=== PATIENT | female | born 1950 | race Caucasian/White ===

== ENCOUNTER → 2016-04-05 | Outpatient (CLI) | payer OTHER ==
[~2016-04-05] MED LIST: CLX20; ESTR1.252; ZMG5
[2016-04-05 17:32] LABS: URINE APPEARANCE CLOUDY (CLEAR); URINE BILIRUBIN NEG (NEG); URINE COLOR YELLOW; URINE EPITHELIAL CELL AUTO >30 /lpf (0-5); URINE NITRITE NEG (NEG); URINE SPECIFIC GRAVITY 1.009 (1.000-1.030); UROBILINOGEN NEG (NEG)
[2016-04-05 17:56] LABS: MANUAL MICROSCOPIC REQUIRED? NO; REVIEW REQ? YES
== END | disposition home or self-care (01) ==
LOC: C.LABPBG 14:54
PROVIDERS: ATTEND Family Medicine
DX: Z11.59 Encounter for screening for other viral diseases (principal); N30.90 Cystitis, unspecified without hematuria

== ENCOUNTER → 2016-07-19 | Outpatient (CLI) | payer OTHER ==
--- NOTE | 2016-07-19 16:32 | DIAGNOSTIC IMAGING REPORT ---
CHEST 2 VIEWS ROUTINE CLINICAL HISTORY: ACUTE BRONCHITIS W/BRONCHOSPASM dyspnea COMPARISON STUDY: No previous studies for comparison. FINDINGS: The bones soft tissues and hemidiaphragms are normal. The cardiomediastinal silhouette is normal. The lungs are clear. The pulmonary vasculature is normal. IMPRESSION: Negative chest. Electronically signed by: Kevin Guadalupe M.D. 07/19/2016 4:30 PM Dictated Date/Time: 07/19/2016 4:02 PM
== END | disposition home or self-care (01) ==
LOC: C.RAD1850 15:31
PROVIDERS: ATTEND Nurse Practitioner Family
DX: J20.9 Acute bronchitis, unspecified (principal)

== ENCOUNTER → 2016-09-27 | Outpatient (CLI) | payer OTHER ==
[2016-09-28 11:24] LABS: URINE APPEARANCE CLEAR (CLEAR); URINE BILIRUBIN NEG (NEG); URINE COLOR YELLOW; URINE NITRITE NEG (NEG); URINE PH 6.5 (4.5-7.5); URINE SPECIFIC GRAVITY 1.008 (1.000-1.030); UROBILINOGEN NEG (NEG)
[2016-09-28 11:37] LABS: MANUAL MICROSCOPIC REQUIRED? NO; REVIEW REQ? NO
== END | disposition home or self-care (01) ==
LOC: C.LABSPEC 11:07
PROVIDERS: ATTEND Family Medicine
DX: Z00.00 Encounter for general adult medical examination without abnormal findings (principal); N30.90 Cystitis, unspecified without hematuria; R30.0 Dysuria

== ENCOUNTER → 2016-10-03 | Outpatient (CLI) | payer OTHER | END | disposition home or self-care (01) | LOC: C.LABSPEC 17:27 | PROVIDERS: ATTEND Family Medicine | DX: R05 Cough (principal) ==

== ENCOUNTER 2021-07-22 05:16 | Observation (INO) ==
--- NOTE | 2021-06-18 11:00 | PAT Medication Instructions ---
Medication Instructions Date of Service June 18, 2021 Home Medications Medication Instructions Recorded 3-in-1 Commode #1 ea 03/04/21 Wheeled Walker #1 ea 03/04/21 medroxyprogesterone 5 mg tablet 5 mg PO DAILY #30 tab 06/07/21 acetaminophen 325 mg capsule 325 - 650 mg PO Q6H PRN conjugated estrogens 0.625 mg/gram vaginal cream (Premarin) 0.3125 mg PV 2XWK multivitamin with minerals 1 tab PO UD cholecalciferol (vitamin D3) 25 mcg (1,000 unit) capsule 25 mcg PO DAILY zinc 50 mg tablet 25 mg PO DAILY 3-in-1 Commode #1 ea Wheeled Walker #1 ea medroxyprogesterone 5 mg tablet 5 mg PO DAILY ASK your prescriber and surgeon medroxyprogesterone 5 mg tablet 5 mg PO DAILY STOP taking 24 hours before surgery conjugated estrogens 0.625 mg/gram vaginal cream (Premarin) 0.3125 mg PV 2XWK DO NOT take the morning of surgery multivitamin with minerals 1 tab PO UD cholecalciferol (vitamin D3) 25 mcg (1,000 unit) capsule 25 mcg PO DAILY zinc 50 mg tablet 25 mg PO DAILY Take morning of surgery With a small sip of water, OTHERWISE NOTHING TO EAT OR DRINK AFTER MIDNIGHT: acetaminophen 325 mg capsule 325 - 650 mg PO Q6H PRN(okay to take up to 4 hours prior to surgery if needed) Take evening before surgery acetaminophen 325 mg capsule 325 - 650 mg PO Q6H PRN(if needed) Other Notes If you have any questions please call us at [phone] or [phone] or [phone] or [phone]
--- NOTE | 2021-06-22 11:16 | Anesthesiology Consultation ---
Date of Service June 22, 2021 Assessment & Plan (1) Encounter for pre-operative examination: - intermittent chest discomfort/abnormal EKG: Patient denies symptoms today in clinic. Case discussed in detail with Dr. Schaefer while patient was in clinic and he advised patient is acceptable for outpatient work-up, will need cardiology pre-op evaluation prior to surgery. Patient made aware, prefers afternoon appointment with [facility]. She verbalized understanding to call 911 if any recurrence of symptoms or new symptoms and to contact her PCP in interim after this appointment today. Workload note also sent to PCP. Awaiting cardiology pre- op evaluation. - COVID screening: Per assessment on 06/22/2021: Travel screen negative, no known COVID-19 positive contacts or current COVID-19 related symptoms in past 2 weeks. Surgeon arranging preop COVID testing, scheduled 07/20/2021. Awaiting results. Chart Review Chart Review: Pending: Refer to Additional Notes / Consult section and Patient seen in Pre Admission Testing Teaching & Discussion Pre-Anesthesia Teaching/Discussion Notes: Instructed NPO after midnight before surgery, except medications with 15 cc of water. Medication instructions provided according to the PAT guidelines. History Surgery Operation Date: 07/22/21 07:00 Proposed Procedures p Left Total Hip Arthroplasty - Geovanny Ryan MD Height/Weight Height: 5 ft 2 in Weight: 70.5 kg Allergies Allergy/AdvReac Type Severity Reaction Status Date / Time No Known Drug Allergies Allergy Verified 06/17/21 11:06 Medications Home Medications Medication Instructions Recorded Confirmed Last Taken acetaminophen 325 mg capsule 325 - 650 mg PO Q6H PRN cap 11/19/18 06/17/21 12/02/18 conjugated estrogens 0.625 mg/gram 0.3125 mg PV 2XWK gm 11/19/18 06/17/21 11/30/18 vaginal cream (Premarin) multivitamin with minerals 1 tab PO UD 11/29/18 06/17/21 12/02/18 cholecalciferol (vitamin D3) 25 25 mcg PO DAILY 01/05/21 06/17/21 Unknown mcg (1,000 unit) capsule zinc 50 mg tablet 25 mg PO DAILY 01/05/21 06/17/21 Unknown 3-in-1 Commode #1 ea 03/04/21 03/04/21 Unknown Wheeled Walker #1 ea 03/04/21 03/04/21 Unknown medroxyprogesterone 5 mg tablet 5 mg PO DAILY #30 tab 06/07/21 06/17/21 Unknown Past Medical History Medical History (Updated 06/22/21 @ 16:30 by Unique Lopez PA-C) Acid reflux pt denies Anemia Anxiety Arthritis Chronic cystitis Constipation states with daily Metamucil and fibrous foods is managed History of depression History of diverticulitis History of recurrent ear infection Hyperlipidemia no meds, d/t concerns for liver impact/side effects per pt LBBB (left bundle branch block) ongoing since 2006 per EKG report Mixed stress and urge urinary incontinence Stroke "MINI STROKE"1992--had memory loss, difficulty talking--still has trouble remembering things, followed with Dr. Guillory--unknown cause--pt deferring statin therapy per PCP note Syncopal episodes chronic hx per pt, at times associated with hypotension, states work-up was negative, last episode of altered consciousness > 20 yrs ago She reports onset of intermittent chest discomfort described as tenderness/pres sure at times waking her from sleep, ongoing x several months increasing in frequency. Denies evaluation or contacting PCP expressing anxiety/stress at clinic visits in general. Notes extensive family cardiac history. Denies chest discomfort or other new symptoms today. Patient denies h/o seizures, heart attack, heart failure, DM, HTN, blood clots or blood transfusions. Exercise / Class Metabolic Activity III < 4 Walking/Shop/Light housework (ambulates with rolling walker, SOB with 1 FOS ongoing x months per pt; chest discomfort as above) Past Family History Family History Mother Hearing loss Myocardial infarction Hypertension Colon cancer Coronary heart disease S/P CABG (coronary artery bypass graft) Heart disease Brother Myocardial infarction Asthma Family history of diabetes mellitus Nephrolithiasis Uncle Myocardial infarction Grandfather (Maternal) Colon cancer Father Melanoma Alzheimer disease Other No family history of adverse response to anesthesia Denies family history of Ovarian cancer Prostate cancer Breast cancer Colorectal cancer Uterine cancer Past Surgical History Surgical History H/O colonoscopy with polypectomy History of bilateral tubal ligation History of dilatation and curettage x2 History of laparoscopy History of left breast biopsy benign History of tooth extraction partial upper and lower History of wisdom tooth extraction Hx of tonsillectomy Nausea and vomiting after administration of anesthetic agent Status post left foot surgery BENIGN tumor removal Past Anesthesia History No Family Hx of Anesthesia Complications and Other (confusion post-op with colonoscopy per pt) History of PONV No Hx of Motion Sickness and History of PONV (with ether, denies with recent procedures) Social History Smoking Status: Never smoker Do You Dip or Chew Tobacco: No Hx Alcohol Use: Yes Alcohol type: wine alcohol intake frequency: holidays/special occasions only Hx Substance Use: No substance use type: does not use Review of Systems Snoring, denies witnessed apneas or sleep studies. Patient denies shortness of breath, dyspnea on exertion, fever, chills, cough, wheezing, or palpitations. Physical Exam Vital Signs Vitals BP 132/80 P 68 TEMP 98.1 SP02 99% on RA RESP 17 Physical Mild limitation cervical extension range of motion without pain TMD 3.5 finger breaths Mallampati Score 2 Lungs: normal respiratory effort. Clear throughout to auscultation, no adventitious breath sounds Cardiac: regular rate and rhythm, no murmurs noted Carotid arteries: negative bruit bilat Lab Results Anesthesia Preop Results Results Anesthesia Widget: WBC 5.72 K/uL (4.8-10.8) 06/22/21 Hgb 12.7 g/dL (12.0-16.0) 06/22/21 Hct 37.1 % (37-47) 06/22/21 Plt 274 K/uL (130-400) 06/22/21 Na 139 mmol/L (136-145) 06/22/21 K 3.8 mmol/L (3.5-5.1) 06/22/21 Cl 107 mmol/L (98-107) 06/22/21 CO2 25 mmol/L (21-32) 06/22/21 BUN 13 mg/dl (6-23) 06/22/21 Creat 0.86 mg/dl (0.6-1.2) 06/22/21 Glucose Level 85 mg/dl (70-99(Fasting)) 06/22/21 PT 10.7 Seconds (9.0-12.0) 06/22/21 PTT 24.7 Seconds (21.0-31.0) 06/22/21 INR 1.0 (0.9-1.1) 06/22/21 Blood Type B Positive 06/22/21 Antibody Screen NEGATIVE 06/22/21 Testing Electrocardiogram Date: 06/22/21 Sinus bradycardia, rate 59 bpm LBBB with repolarization abnormality No significant change since 04/27/2006 ECG Chest X-Ray Date: 06/22/21 The lungs are clear of alveolar opacities. There is no evidence for effusion bilaterally. There is no evidence for vascular congestion. There is no acute osseous pathology. IMPRESSION: 1. No acute cardiopulmonary disease. Other Testing Abdomen/pelvis CT 01/14/2021 Pancreas: A 12 mm lipoma is incidentally noted in the pancreatic head. The unenhanced pancreas is otherwise grossly unremarkable. Kidneys: The unenhanced kidneys demonstrate mild cortical atrophy and are without hydronephrosis. There is a punctate nonobstructing right renal calculus. No left renal calculi are identified and no ureteral stone is seen. There is no evidence of contour deforming renal mass lesion. Abdominal vasculature: There is moderate to advanced atherosclerotic calcification and mild ectasia of the abdominal aorta. Bowel: There is mild colonic diverticulosis without CT evidence of acute diverticulitis. No bowel obstruction is seen. The cecum is located in the left lower quadrant. The appendix is well-visualized and normal. Skeletal structures: The skeletal structures are osteopenic. No lytic or blastic lesions are seen. There is mild lumbosacral spondylosis. Arthritic change is noted in the left hip. IMPRESSION: 1. There are no acute infectious or inflammatory findings in the abdomen or pelvis. 2. Punctate nonobstructing right renal calculus. 3. Additional findings as above.
--- NOTE | 2021-07-18 13:01 | History and Physical Report ---
DATE OF ADMISSION: 07/22/2021. CHIEF COMPLAINT: Left hip pain. HISTORY OF PRESENT ILLNESS: The patient is a 71-year-old female who presents for surgical treatment of her left hip. She has a several-year history of increasing left hip pain and discomfort that has gotten significantly worse over the past year or two. She describes buttock pain, groin pain, thigh pain. She has difficulty walking any distance. She went through therapy, which did not help at all. She had an injection into the bursa, which did not help. She takes Tylenol in the morning. She ca n take Aleve due to GI irritation. She uses a cane and has had to use this more and more as time is going on due to her pain. She would like to have her hip fixed. PAST MEDICAL HISTORY: Significant for: 1. Elevated cholesterol. 2. History of stroke in 1992. 3. Gastroesophageal reflux disease. 4. History of recurrent cystitis. 5. Tubular adenoma. 6. Diverticulosis. 7. Urinary incontinence. PAST SURGICAL HISTORY: None recorded. ALLERGIES: None. CURRENT MEDICATIONS: Include. 1. Medroxyprogesterone. 2. Multivitamin. 3. Tylenol. SOCIAL HISTORY: Significant for a female. She is from ____[place], [place]. Does not smoke. FAMILY HISTORY: No heart disease and colon cancer. REVIEW OF SYSTEMS: Significant for multiple musculoskeletal aches and pains. She was told that she had some type of mini stroke, but no gross sequelae. No history of DVT or PE. No known bleeding pro blems. Does not take any blood thinners. PHYSICAL EXAMINATION: GENERAL: Shows a middle-aged female. Looks younger than her stated age. HEENT: Benign. NECK: Supple. No lymphadenopathy. LUNGS: Clear to auscultation. HEART: Regular rate and rhythm. ABDOMEN: Soft, nontender, nondistended. EXTREMITIES: Grossly neurovascularly intact except as follows. Examination of the left hip and leg reveals the patient walks with a markedly antalgic gait. She nava ps quite a bit on the left side. Leg lengths appear pretty equal. She does have pain with any type of hip motion. She also is very tender to palpation. Negative straight leg raise. She is neurologi jeaneth intact. X-RAYS: X-rays of the left hip were reviewed. It shows advanced left hip arthritis. She has comple te loss of joint space. She has cystic changes in the acetabulum. Right hip looks pretty normal. ASSESSMENT: A 71-year-old female with a history of multiple musculoskeletal aches and pains with adv anced left hip arthritis. It has become more debilitating over time. She has failed conservative me asures and would like to have her left hip replaced. She did undergo cardiac evaluation with a stress echo which was negative and cleared by Dr. Negron. S he does have a history of mini strokes, but no sequelae. PLAN: We will proceed with a left hip replacement. She is planning to be [facility] Her son is going to come and stay with her for 2 weeks. Job ID: [id number]
[2021-07-22] MEDS ORDERED: Scopolamine 1 MG TDSY TD SCH (06:00)
[2021-07-22] MEDS ORDERED: ACETAMINOPHEN 500 MG TAB PO SCH (06:00)
[2021-07-22] MEDS ORDERED: GABAPENTIN 300 MG CAP PO SCH (06:00)
[2021-07-22] MEDS ORDERED: TRANEXAMIC ACID 1,000 MG **IV Pre-op IV SCH (06:00)
[2021-07-22] MEDS ORDERED: FAMOTIDINE 20 MG TAB PO SCH (06:00)
[2021-07-22] MEDS ORDERED: LR 500ML BOLUS, THEN 15ML/HR IV SCH (06:00)
[2021-07-22] MEDS ORDERED: ceFAZolin 2000MG 2,000 MG/15 ML SYR IV SCH (06:00)
[2021-07-22] MEDS ORDERED: LR 60ML/HR IV SCH (06:00)
[2021-07-22] MEDS ORDERED: BUPIVACAINE 0.5 % 5 MG/1 ML PF 10ML VIAL ONE (06:16)
[2021-07-22] MEDS ORDERED: fentaNYL citrate 100 MCG/2 ML VIAL ONE (06:38)
[2021-07-22] MEDS ORDERED: MIDAZOLAM HCL 1 MG/ML 2ML VIAL ONE (06:38)
[2021-07-22] MEDS ORDERED: EPINEPHrine INJ 1 MG/ML AMP ONE (06:43)
[2021-07-22] MEDS ORDERED: BUPIVACAINE 0.5 % 5 MG/1 ML MPF 30ML VIAL ONE ×2 (06:43→06:53)
--- NOTE | 2021-07-22 06:55 | History & Physical Bridge Note ---
Date of Service July 22, 2021 History & Physical Bridge Note I have examined the patient, reviewed the History & Physical and in the interval since the performance of the History & Physical I have noted the following changes of clinical significance: no changes noted
[2021-07-22] MEDS ORDERED: PHENYLEPHRINE 100MCG/ML 5ML SYR ONE (07:43)
[2021-07-22] MEDS ORDERED: LIDOCAINE 2% 2 ML VIAL/AMP(20MG/ML) INFIL ONE (07:43)
[2021-07-22] MEDS ORDERED: PROPOFOL IV EMULSION 10 MG/ML 20 ML VIAL IV ONE (07:43)
[2021-07-22] MEDS ORDERED: ONDANSETRON INJ 2 MG/ML 2 ML VIAL ONE (07:43)
[2021-07-22] MEDS ORDERED: ePHEDrine sulfate 50 MG/ML SYR ONE (07:43)
[2021-07-22] MEDS ORDERED: HYDROmorphone INJ 1 MG/ML SYRINGE IV PRN (08:33)
[2021-07-22] MEDS ORDERED: ePHEDrine sulfate 50 MG/ML AMP IV PRN ×2 (08:33→10:09)
[2021-07-22] MEDS ORDERED: ATROPINE SULFATE 0.1 MG/ML 10ML SYR IV PRN ×2 (08:33→10:09)
--- NOTE | 2021-07-22 08:45 | Operative Report ---
PG Post Operative Report Pre & Post Diagnosis Operation Date: 07/22/21 07:00 Pre-Op Diagnosis: Left Hip Osteoarthritis Post-Op Diagnosis: Left Hip Osteoarthritis I identified the patient and participated in the time-out.: Yes Procedure Operation Date: 07/22/21 07:00 Actual Procedures p Left Total Hip Arthroplasty(Left) - Geovanny Ryan MD Surgeon Geovanny Ryan MD Business And Marketing Teacher Amrit Mullins PA-C Estimated Blood Loss 200 Findings Consistent with Post-Op Diagnosis Operative findings were advanced left hip DJD. She had a full-thickness cartilage loss of the superior aspect of the femoral head as well as the acetabulum. Moderate-sized joint effusion. Fluids 1100 cc Specimens Left femoral head sent for pathology Anesthesia Type Spinal MAC Complications none Disposition Accompanied Patient To Recovery: Yes Indications Patient is a 71-year-old female has had a several year history of increasing left hip pain discomfort is gotten secondarily worse over the past year. She failed conservative measures. X-ray showed advanced left hip arthritis which has progressed. That she elected proceed with surgical treatment. Description of Procedure Operative implants consist of: 1. Biomet G7 size 50 mm acetabular shell. 2. 6.5 cancellous acetabular screws 135 mm length 120 mm length. 3. [place] hole logistics planner. 4. Highly cross-linked polyethylene liner with a 50 mm outer diameter, 36 mm inner diameter with a chua placed inferior and posterior. 5. DePuy Corail size 9 KLA femoral stem. 6. +1.5/36 mm ceramic articular ball. The patient was taken to the operating, identified, placed on the operating table supine position but all contact areas were properly padded. IV antibiotics tried by anesthesia team. A spinal anesthetic had been implemented holding area. Miramontes catheter was placed in sterile fashion. The patient was then placed in the right lateral decubitus position. Axillary roll was placed. Stulberg hip positioner was used for positioning. Left hip and leg were then prepped and draped in usual sterile fashion. A posterior lateral approach to the left hip was then performed to a curvilinear incision centered over the greater trochanter. Sharp dissection Through subcutaneous this down to the IT band gluteal fascia the IT band gluteal fascia incised longitudinally in line with skin incision. The underlying greater bursa was excised. The piriformis and external rotators were released from the posterior aspect hip joint along with the posterior capsule was a single layer. Great care was taken throughout the procedure Peca sciatic nerve at all times. Hip was internally rotated and dislocated. Femoral neck osteotomy cut was made with Final Cut about 10 mm above the lesser trochanter. Femoral head was removed and sent for pathology. The femur was retracted anteriorly. Attention drawn the acetabulum. The acetabular labrum was excised. The pulvinar fat was excised. Sequential reaming the acetabular was then performed begin with size 43 and progressing up to a 49. I reamed a bit with a 50 reamer and then placed a 50 mm acetabular shell in about 40 degrees lateral opening and 20 degrees of anteversion. It was fixed with two 6.5 cancellous acetabular screws. A small anterior osteophyte was removed. Trial liner was placed. Attention drawn the femur. The proximal femur was entered with a Brightkite cutter followed by canal finder. I then broached beginning with a size 8 and progressed to a 9. The proximal dimensions could not take any bigger implant so we stopped here. We had good rotational control. I trialed the hip and the hip was stable in full extension and external rotation and flexion to 9 degrees internal rotation about 50 degrees. I was concerned that I lengthened her and may be increased or offset slightly so we elected to use a +1.[address] a chua on the acetabulum. All trial implants were removed. The apex hole logistics planner was placed. A highly cross-linked polyethylene liner with a chua placed inferior and posterior was placed. A DePuy size 9 KLA femoral stem was impacted in position. A +1.5/36 mm ceramic articular ball was placed. Hip was located once again found to be stable. The wound was irrigated with copious also pulsatile lavage solution. I did inject locally with 60 cc of half percent Marcaine with epinephrine. The posterior capsule and external rotators were then repaired through drill holes in the posterior trochanter as a single layer with #2 Tycron suture. The IT band gluteal fascia then closed in 1 PDS suture running fashion for subcutaneous tissues then closed in 2 layers with a deep layer #2 Vicryl suture in the subcutaneous tissues with 2-0 Dexon suture in a buried interrupted fashion the skin was closed skin maryam. Leg was then cleaned and dried a sterile dressing was Xeroform, 4 x 4's, ABD pad, foam tape was applied. The patient then transferred to the recovery room in stable condition. Patient tolerated procedure well and there were no complications. Amrit Mullins, my physician surgeon assistant, was present for the entire procedure. His assistance was essential and required for appropriate patient positioning, prepping and draping, surgical exposure, performing the technical details of the operation, placement the implants, closure of the wound, and placement of the sterile bandage. I attest to the content of the Intraoperative Record and any orders documented therein. Any exceptions are noted below.
--- NOTE | 2021-07-22 09:23 | XRay Report ---
XR hip 1V LT w pelvis CLINICAL HISTORY: IN PACU - A/P PELVIS and LATERAL HIP TECHNIQUE: 2 views of the left hip and single frontal view of the pelvis were obtained. Comparison: Comparison is made to left hip radiograph 08/23/2019 FINDINGS: Patient is status post total hip arthroplasty with expected postsurgical changes including soft tissu e swelling, subcutaneous emphysema, and surgical staple placement. No periarticular lucency or hardwa re fracture is seen. IMPRESSION: Expected postoperative appearance status post placement of total hip arthroplasty. ACT 112: Negative or not required by law. Electronically signed by: Alfonzo Baker M.D. 07/22/2021 9:21 AM
--- NOTE | 2021-07-22 10:10 | Anesthesiology Progress Note ---
Date of Service July 22, 2021 Anesthesia Post Procedure Vital Signs Vital Signs: Temp Pulse Resp BP Pulse Ox 07/22/21 09:50 75 16 132/72 98 07/22/21 09:40 73 16 131/72 96 07/22/21 09:30 81 16 132/70 96 07/22/21 09:20 36.5 C 84 18 131/68 97 07/22/21 09:10 36.5 C 84 18 126/65 98 07/22/21 09:00 89 18 128/52 L 100 07/22/21 08:50 82 16 122/52 L 99 07/22/21 08:40 92 H 18 104/74 99 07/22/21 08:34 36.4 C L 90 18 129/61 97 07/22/21 05:30 36.6 C 67 18 146/82 H 98 Pain Intensity Left Hip: Pain Intensity: 2 Transfer of Care Handoff Completed per policy Notes Mental Status: alert / awake / arousable and participated in evaluation Nausea / Vomiting: adequately controlled Pain: adequately controlled Airway Patency, RR, SpO2: stable & adequate BP & HR: stable & adequate Hydration State: stable & adequate Neuraxial Anesthesia: was administered and sensory block is resolving Anesthetic Complications: no major complications apparent and Pt Satisfied with anesthetic care
[2021-07-22] MEDS ORDERED: HYDROmorphone INJ 0.5 MG/0.5 ML SYR IV PRN (10:49)
[2021-07-22] MEDS ORDERED: bisacodyL 10 MG SUPP PR PRN (10:49)
[2021-07-22] MEDS ORDERED: ALUMINUM/MAGNESIUM SUSP 30 ML UDC PO PRN (10:49)
[2021-07-22] MEDS ORDERED: METOCLOPRAMIDE HCL INJ 5 MG/ML 2 ML VIAL IV PRN (10:49)
[2021-07-22] MEDS ORDERED: ONDANSETRON INJ 2 MG/ML 2 ML VIAL IV PRN (10:49)
[2021-07-22] MEDS ORDERED: PREMARIN VAG CRM 14 APPLN/30 GM TUBE PV SCH (10:49)
[2021-07-22] MEDS ORDERED: MAGNESIUM HYDROXIDE SUSP 30 ML UDC PO PRN (10:49)
[2021-07-22] MEDS ORDERED: DOCUSATE SODIUM/SENNA 50/8.6MG TAB PO SCH (10:49)
[2021-07-22] MEDS ORDERED: NALOXONE HCL 0.4 MG/1 ML VIAL/CARP IV PRN (10:49)
[2021-07-22] MEDS ORDERED: HYDROmorphone INJ 0.5 MG/0.5 ML SYR ONE (10:58)
[2021-07-22] MEDS: SODIUM CHLORIDE 0.9% 1000ML 1,000 ML IV SCH ×2 (11:48→22:03)
[2021-07-22] MEDS: ASPIRIN 81 MG ECTAB PO SCH ×2 (11:54→20:02)
[2021-07-22] MEDS: CHOLECALCIFEROL 1,000 UNITS 25 MCG TAB PO SCH (11:54)
[2021-07-22] MEDS: KETOROLAC TROMETHAMINE 15 MG/ML VIAL IV SCH ×3 (11:55→23:28)
[2021-07-22] MEDS: DOCUSATE SODIUM 100 MG CAP PO SCH ×2 (11:55→20:01)
[2021-07-22] MEDS: ACETAMINOPHEN 500 MG TAB PO SCH ×2 (13:01→22:03)
[2021-07-22] MEDS: PSYLLIUM or GUAR GUM FIBER POWDER PACKET PO SCH (13:03)
[2021-07-22] MEDS ORDERED: TRANEXAMIC ACID / 0.7% NACL 1,000 MG/100 ML BAG IV SCH (14:45)
[2021-07-22] MEDS: ASCORBIC ACID 500 MG TAB PO SCH (15:50)
[2021-07-22] MEDS: Scopolamine CHECK PATCH PLACEMENT SCH ×2 (15:50→23:28)
[2021-07-22] MEDS: ceFAZolin 1000MG 1,000 MG/7.5 ML SYR IV SCH ×2 (16:20→22:03)
[2021-07-22] MEDS: traMADol HCL 50 MG TABLET PO PRN (20:01)
[2021-07-22] MEDS: SENNA 8.6 MG TAB PO SCH (20:02)
[2021-07-23] MEDS: KETOROLAC TROMETHAMINE 15 MG/ML VIAL IV SCH ×4 (05:30→22:40)
[2021-07-23] MEDS: ACETAMINOPHEN 500 MG TAB PO SCH ×3 (05:30→22:40)
[2021-07-23 06:19] LABS: Basophils # (auto) 0.01 K/uL (0-0.2); Basophils % (auto) 0.1 %; Eosinophils # (auto) 0.05 K/uL (0-0.5); Eosinophils % (auto) 0.6 %; Hematocrit (blood only) 31.1 % (37-47); Hemoglobin 10.7 g/dL (12.0-16.0); Immature Granulocytes # (auto) 0.03 K/uL (0.00-0.02); Immature Granulocytes % (auto) 0.3 %; Lymphocytes # (auto) 1.81 K/uL (1.2-3.4); Lymphocytes % (auto) 20.9 %; Mean Corpuscular Hemoglobin 32.2 pg (25-34); Mean Corpuscular Hgb Conc 34.4 g/dL (32-36); Mean Corpuscular Volume 93.7 fL (80-100); Mean Platelet Volume 8.8 fL (7.4-10.4); Monocytes # (auto) 0.83 K/uL (0.11-0.59); Monocytes % (auto) 9.6 %; Neutrophils # (auto) 5.91 K/uL (1.4-6.5); Neutrophils % (auto) 68.5 %; Platelet Count 212 K/uL (130-400); RDW Coefficient of Variation 13.5 % (11.5-14.5); RDW Standard Deviation 46.7 fL (36.4-46.3); Red Blood Count 3.32 M/uL (4.2-5.4); White Blood Count 8.64 K/uL (4.8-10.8)
[2021-07-23 06:53] LABS: BUN Creatinine Ratio 13.2 (10-20); Calcium 8.5 mg/dl (8.5-10.1); Creatinine Clr Calc Pharmacy 51.9 ml/min; Est GFR (African American) 73.6 ml/min; Est GFR (Non-African American) 63.5 ml/min; Potassium 3.6 mmol/L (3.5-5.1)
[2021-07-23] MEDS ORDERED: dexAMETHasone 10 MG in SYRINGE 0 ML IV SCH (08:00)
--- NOTE | 2021-07-23 08:24 | Progress Notes ---
DATE OF NOTE: 07/23/2021. SUBJECTIVE: A 71-year-old white female postoperative day 1 from left hip replacement. She is doing okay this morning. Had a decent amount of pain last night. Had a little trouble getting up last nig ht, got a little dizzy and lightheaded. She is a bit concerned about this. No chest pain or shortne ss of breath. OBJECTIVE: VITAL SIGNS: Temperature 36.8. Vital signs are stable. GENERAL: Shows a pleasant, elderly female. She is lying in bed, looks pretty comfortable this morni ng. LUNGS: Clear to auscultation. HEART: Regular rate and rhythm. ABDOMEN: Soft, nontender, nondistended. EXTREMITIES: Grossly neurovascularly intact except as follows. Examination of the left hip reveals the dressing to be clean, dry and intact. Leg lengths were equal . She can dorsiflex and plantarflex her foot appropriately. She is neurologically intact. LABORATORY: Hemoglobin 10.7, hematocrit 31.1. Electrolytes are stable. ASSESSMENT: A 71-year-old white female postop day 1 from a left hip replacement, doing okay. Had a little trouble getting up and around yesterday. Moderate amount of pain, but doing okay with pain me dicines. We will see how she mobilizes today. PLAN: 1. DVT prophylaxis include thigh-high TEDs, SCDs, and aspirin twice a day. 2. PT/OT. She can weight bear as tolerated. Left total hip protocol. 3. Pain control, doing okay with current pain regimen. 4. Disposition: She is planning to be discharged to home with some home health. We will see how omari ferreira goes today. Job ID: [id number]
[2021-07-23] MEDS: traMADol HCL 50 MG TABLET PO PRN ×2 (09:04→13:23)
[2021-07-23] MEDS: ASPIRIN 81 MG ECTAB PO SCH ×2 (09:05→20:59)
[2021-07-23] MEDS: CEROVITE ADV FORMULA TAB PO SCH (09:05)
[2021-07-23] MEDS: Scopolamine CHECK PATCH PLACEMENT SCH ×3 (09:05→23:05)
[2021-07-23] MEDS: ASCORBIC ACID 500 MG TAB PO SCH ×2 (09:06→17:48)
[2021-07-23] MEDS: ZINC SULFATE 220 MG CAPSULE PO SCH (09:06)
[2021-07-23] MEDS: CHOLECALCIFEROL 1,000 UNITS 25 MCG TAB PO SCH (09:06)
[2021-07-23] MEDS: MULTIVITAMIN TAB PO SCH (09:06)
[2021-07-23] MEDS: DOCUSATE SODIUM 100 MG CAP PO SCH ×2 (09:08→21:01)
[2021-07-23] MEDS: PSYLLIUM or GUAR GUM FIBER POWDER PACKET PO SCH (09:08)
[2021-07-23] MEDS: SENNA 8.6 MG TAB PO SCH (20:59)
[2021-07-24] MEDS: traMADol HCL 50 MG TABLET PO PRN ×3 (04:24→14:24)
[2021-07-24] MEDS: KETOROLAC TROMETHAMINE 15 MG/ML VIAL IV SCH (05:45)
[2021-07-24] MEDS: ACETAMINOPHEN 500 MG TAB PO SCH ×2 (05:46→14:25)
[2021-07-24] MEDS: CHOLECALCIFEROL 1,000 UNITS 25 MCG TAB PO SCH (08:39)
[2021-07-24] MEDS: CEROVITE ADV FORMULA TAB PO SCH (08:39)
[2021-07-24] MEDS: ASCORBIC ACID 500 MG TAB PO SCH (08:39)
[2021-07-24] MEDS: ZINC SULFATE 220 MG CAPSULE PO SCH (08:39)
[2021-07-24] MEDS: PSYLLIUM or GUAR GUM FIBER POWDER PACKET PO SCH (08:39)
[2021-07-24] MEDS: MULTIVITAMIN TAB PO SCH (08:39)
[2021-07-24] MEDS: ASPIRIN 81 MG ECTAB PO SCH (08:39)
[2021-07-24] MEDS: Scopolamine CHECK PATCH PLACEMENT SCH (08:41)
[2021-07-24] MEDS: DOCUSATE SODIUM 100 MG CAP PO SCH (08:44)
--- NOTE | 2021-07-24 09:27 | Progress Notes ---
DATE OF SERVICE: 07/24/2021. SUBJECTIVE: A 71-year-old white female postop day 2 from a left hip replacement. She is doing quite a bit better this morning. She got some pain medicine and is doing better. No chest pain or shortn ess of breath. Not feeling dizzy or lightheaded. Just having some lateral hip pain. OBJECTIVE: VITAL SIGNS: Temperature 36.6. Vital signs are stable. GENERAL: Physical examination shows a pleasant, elderly female. She is sitting up in bed and looks pretty comfortable this morning. EXTREMITIES: Examination of the left hip reveals the incision to be clean, dry, and intact. A littl e bruising around the incision site. No drainage. Leg lengths were equal. Hip is located. She is neurologically intact. ASSESSMENT: A 71-year-old white female postoperative day 2 from a left hip replacement, doing reason ably well. It is a bit bigger operation than what she had anticipated. She is requiring pain medici ne. Doing okay with that. PLAN: 1. DVT prophylaxis to include thigh-high TEDs, SCDs, and aspirin twice a day. 2. PT, OT, weightbear as tolerated. Left total hip protocol. 3. Pain control, doing okay with current pain regimen. She is requiring the pain medicines. 4. Disposition: Plan to discharge to home with some home health, depending on therapy today. Job ID: [id number]
--- NOTE | 2021-07-25 18:53 | Discharge Summary ---
Date of Service July 25, 2021 Discharge Data Procedures Performed Operation Date: 07/22/21 07:00 Actual Procedures p Left Total Hip Arthroplasty(Left) - Geovanny Ryan MD Hospital Course (1) S/P total left hip arthroplasty: This is a 71 year old patient admitted on 07/22/21 and underwent total hip arthroplasty. She tolerated the procedure well and there were no complications. Transferred to the PACU post op and later to the orthopedic floor for further care. She was given ancef for antibiotic prophylaxis. She was also given JOSE stockings, SCDs, and aspirin for DVT prophylaxis. Hemoglobin, hematocrit, and vital signs were monitored during her hospital stay and remained stable. Did not require any blood transfusions. There were no complications during her hospital stay. By post op day #2 the patient was tolerating a regular diet, pain was reasonably controlled with oral pain medicine, and she was participating in physical therapy. On post op day #2 the patient was discharged home and set up with home health care. She was given printed discharge instructions including prescriptions for extra strength tylenol, aspirin, toradol, zofran, and tramadol. Continue physical therapy, weight bearing as tolerated. Continue hip precautions. Continue JOSE stockings. Follow up approximately 2 weeks post op or sooner if there are problems or concerns. Coding Level of Care Code None Diagnoses S/P total left hip arthroplasty Z96.642
== END 2021-07-24 14:45 | disposition home health service (06) ==
LOC: ASU 05:16 → PACUINP 05:16 → 3E 12:52

== ENCOUNTER 2024-06-14 09:15 | Observation (INO) ==
--- NOTE | 2024-06-14 09:54 | XRay Report ---
XR chest 1V portable CLINICAL HISTORY: weakness COMPARISON STUDY: 11/18/2023 FINDINGS: Stable mild cardiomegaly without pulmonary vascular congestion. No effusion, consolidation, or pneumothorax. IMPRESSION: No acute findings. ACT 112: Negative or not required by law. Electronically signed by: Kei Jackson M.D. 06/14/2024 9:53 AM
[2024-06-14] MEDS: SODIUM CHLORIDE 0.9% 500 ML IV ONE (10:19)
[2024-06-14 11:05] LABS: Basophils # (auto) 0.03 K/uL (0.00-0.20); Basophils % (auto) 0.4 %; Eosinophils # (auto) 0.06 K/uL (0.00-0.50); Eosinophils % (auto) 0.9 %; Hematocrit (blood only) 29.4 % (37.0-47.0); Hemoglobin 9.1 g/dl (12.0-16.0); Immature Granulocytes # (auto) 0.03 K/uL (0.01-0.20); Immature Granulocytes % (auto) 0.4 %; Lymphocytes # (auto) 1.05 K/uL (1.20-3.40); Lymphocytes % (auto) 15.6 %; Mean Corpuscular Hemoglobin 23.7 pg (25.0-34.0); Mean Corpuscular Volume 76.6 fL (80.0-100.0); Mean Platelet Volume 8.6 fL (9.4-12.4); Monocytes # (auto) 0.39 K/uL (0.11-0.59); Monocytes % (auto) 5.8 %; Neutrophils # (auto) 5.16 K/uL (1.40-6.50); Neutrophils % (auto) 76.9 %; Platelet Count 289 K/uL (130-400); RDW Coefficient of Variation 15.9 % (11.5-14.5); RDW Standard Deviation 43.9 fL (36.4-46.3); Red Blood Count 3.84 M/uL (4.20-5.40); White Blood Count 6.72 K/ul (4.8-10.8)
[2024-06-14 11:14] LABS: Albumin Globulin Ratio 1.7 (0.9-2); Albumin Level 4.4 gm/dl (3.4-5.0); BUN Creatinine Ratio 10.3 (10-20); Bilirubin,Total 0.6 mg/dl (0.2-1.0); Creatinine Clr Calc Pharmacy 44.2 ml/min; Globulin 2.6 gm/dl (2.5-4.0); Magnesium 2.1 mg/dl (1.7-2.4)
[2024-06-14 11:20] LABS: Troponin I High Sensitivity 4.4 pg/ml (0-14)
[2024-06-14] MEDS: OPTIRAY 320 125ml IV ONE (11:21)
[2024-06-14 11:29] LABS: Thyroid Stimulating Hormone 3.093 uIu/ml (0.300-4.500)
--- NOTE | 2024-06-14 11:39 | CT Scan Report ---
CT angio chest PE protocol CT DOSE: 1347.88 mGy.cm HISTORY: hypotension, syncope. TECHNIQUE: Multiple CTA images of the chest were obtained after the intravenous administration of 112 ml Optiray. Coronal and sagittal MIPS were obtained from the axial data set and were submitted for review. All measurements were obtained according to NASCET criteria. A dose lowering technique was u tilized adhering to the principles of ALARA. COMPARISON STUDY: 11/16/2023 FINDINGS: There is no pulmonary consolidation, pleural effusion, or pneumothorax. Stable 5 mm right m iddle lobe pulmonary nodule. No enlarged adenopathy. No pericardial effusion. No thoracic aortic diss ection or aneurysm. There are coronary artery and aortic calcifications. No pulmonary embolism. No ac [place] osseous findings. IMPRESSION: No pulmonary embolism or pneumonia seen. ACT 112: Negative or not required by law. The above report was generated using voice recognition software. It may contain grammatical, syntax o r spelling errors. Electronically signed by: Kei Jackson M.D. 06/14/2024 11:38 AM
--- NOTE | 2024-06-14 11:42 | CT Scan Report ---
CT head/brain wo con CLINICAL HISTORY: 74 years-old Female with syncope. Acute syncope TECHNIQUE: Multiple axial CT images of the head were obtained without contrast. A dose lowering tech nique was utilized adhering to the principles of ALARA. COMPARISON: Brain MRI 07/14/2022 FINDINGS: No acute intracranial hemorrhage, midline shift, intracranial mass, hydrocephalus, territorial ischem ia or abnormal extra-axial collection. Unchanged prominent perivascular space in the left anterior co mmissure distribution measuring 1.2 cm. Calcifications of the falx cerebri. Partially empty sella. The calvarium is intact. Small mastoid effusions. The paranasal sinuses are clear. IMPRESSION: No acute intracranial abnormality. ACT 112: Negative or not required by law. The above report was generated using voice recognition software. It may contain grammatical, syntax o r spelling errors. Electronically signed by: Jonny Osei M.D. 06/14/2024 11:41 AM
[2024-06-14 14:06] LABS: Appearance Urine Clear (Clear); Bilirubin Urine Negative (Negative); Blood Urine Negative (Negative); Color Urine Yellow; Glucose Urine UA Negative (Negative); Ketones Urine 1+ (Negative); Leukocyte Esterase Urine Negative (Negative); Nitrite Urine Negative (Negative); Protein Urine Negative (Negative); Specific Gravity Urine 1.044 (1.000-1.030); Urobilinogen Urine Negative (Negative); pH Urine 6.5 (4.5-7.5)
[2024-06-14] MEDS: SODIUM CHLORIDE 0.9% 1,000 ML IV SCH (14:10)
--- NOTE | 2024-06-14 14:24 | Emergency Department Note ---
Impression & Plan Syncope and collapse, Acute hypotension, Generalized weakness ED Provider Note NAME: GERONIMO LUCIANO AGE: 74 SEX: Female INFORMANT: Patient ED PROVIDER(S): Allen Menjivar MD CHIEF COMPLAINT: Syncope PLAN: Disposition: Admitted Outpatient prescription management: none Referral: None MEDICAL DECISION MAKING: Patient presented after syncopal episode. She was hypotensive and bradycardic in the office. Patient did well here maintaining her blood pressure. She still generally weak. She was hydrated. ECG showed pre-existing left bundle branch block with bradycardia. No dysrhythmias noted on monitoring. No profound bradycardia noted like she experienced in the office. Patient underwent CT imaging of the head and chest. No thromboembolic disease noted. Urinalysis was unremarkable. CBC showed a stable anemia with only slight worsening of her hemoglobin. No leukocytosis. Chemistry panel was unremarkable as well as cardiac troponin. Given the episode with bradycardia and hypotension further evaluation and management in the hospital is felt to be appropriate. [facility] Case discussed and diagnostics were reviewed. Patient was evaluated in the ER and admitted for further management. Care/management discussed with: none Level of care consideration(s): After review of the information above and other included data, I feel the patient requires escalation of care to admission Triage Nursing notes: reviewed and agree them. Vital Signs: reviewed and remarkable for borderline bradycardia Additional History obtained from: Family Chronic Medical/Social Conditions affecting care: CAD Prior/ Outside/ External records reviewed: Cardiac stress from 01/20 reviewed. Patient had dobutamine test done with inducible hypokinesis. Differential Diagnosis: Vasovagal event, dehydration, infection, hypoglycemia, electrolyte abnormalities, cardiac sources, intracerebral event, pulmonary embolism, seizure, toxicologic, neurologic, as well as other pathologies. Diagnostics, independently interpreted by me: ECG: Twelve-lead ECG reveals sinus bradycardia 57 bpm. Left bundle branch block. When compared to prior ECG of 11/18/2023 there is no change. Cardiac Monitoring: Cardiac monitoring ordered by me: The patient was placed on continuous cardiac monitoring and observed. It revealed a sinus bradycardia at 58 bpm. Medical decision rules: none Imaging studies: Head CT: A noncontrast CT scan of the head was performed and was negative for tumor, fracture, intracranial hemorrhage, or other acute pathology. Chest x-ray. Findings: A chest x-ray was performed and revealed no pneumothorax, effusion, infiltrate, pulmonary edema, free air under the diaphragm, or wide mediastinum. Impression: No acute disease. I refer you to the EMR for further details. HPI: 74 year old Female arrives for evaluation of syncope. Patient was at her cataract surgery follow-up and had a syncopal episode. She reportedly collapsed. Patient's blood pressure was noted to be low at 70s systolic and she was also bradycardic. Patient notes decreased appetite since her surgery yesterday. She notes generalized fatigue but denies any specific symptoms. She still has an blurry vision in the left eye and mild discomfort there/headache. Pt denies trauma, fevers, chills, diaphoresis, neck pain, chest pain, breathing difficulties, nausea, vomiting, abdominal pain, back pain, melena, hematochezia, urinary symptoms, numbness, focal weakness, lymphadenopathy, rash, or other complaints. PAST MEDICAL HISTORY: See Below, left bundle branch block, migraine, GERD, recurrent cystitis PAST SURGICAL HISTORY: See Below, SOCIAL HISTORY: See Below, non-smoker HOME MEDICATIONS: See Below ALLERGIES: See Below VITALS: See Below PHYSICAL EXAMINATION: GENERAL: Awake, alert, [id number], in no distress HENT: Normocephalic, atraumatic. Oropharynx unremarkable. EYES: Normal conjunctiva. Sclera non-icteric. Right pupil round and reactive. Left pupil slightly dilated without signs of bleeding or infection NECK: Inspection normal. Non-tender. Supple. No nuchal rigidity. FROM. No masses. RESPIRATORY: Clear to auscultation. No wheezes. No rales. Normal respiratory effort. CARDIAC: Borderline bradycardic rate. Normal rhythm. No murmurs. No rubs. Extremities warm and well perfused. Pulses equal. No JVD. GI: Soft, non-distended. No tenderness to palpation. No rebound or guarding. No masses. RECTAL: Deferred. MUSCULOSKELETAL: Atraumatic. Chest examination reveals no tenderness. The back is symmetrical on inspection without obvious abnormality. There is no CVA tenderness to palpation. No joint edema. LOWER EXTREMITIES: Calves are equal size bilaterally and non-tender. No edema. No discoloration. NEURO: Normal sensorium. No focal sensory or motor deficits noted. Speech normal. Cranial nerves II through XII intact no drift. SKIN: No rash or jaundice noted. PROCEDURES: none CRITICAL CARE: none OBSERVATION NOTE: none Past Med/Surg History Problem List (Updated 06/14/24 @ 14:24 by Allen Menjivar MD) Generalized weakness (Acute) Acute hypotension (Acute) Syncope and collapse (Acute) Iron deficiency Anemia FROST (dyspnea on exertion) History of stroke (~1992) MINI STROKE"1992--had memory loss, difficulty talking--still has trouble remembering things, follows with Dr. Guillory - last seen 07/06/23 Mixed stress and urge urinary incontinence Diverticular disease Chronic cystitis Arthritis Anxiety LBBB (left bundle branch block) ongoing since 2006 per EKG report Lipoma of left upper extremity Dizziness Sensorineural hearing loss (SNHL) of both ears Schatzki's ring (06/2023) Migraine without aura, intractable, without status migrainosus Other symptoms and signs involving cognitive functions and awareness Vestibular migraine Cerebral vascular disease Mild cognitive impairment Hyperlipidemia Tubular adenoma (2019) Diverticulosis Urinary incontinence Trochanteric bursitis, left hip Allergic rhinitis (Chronic) Atrophic vaginitis (Chronic) GERD without esophagitis (Chronic) Mixed hearing loss of left ear (Chronic) Recurrent cystitis (Chronic) Medical History Ear fullness Negative middle ear pressure of both ears Inflamed seborrheic keratosis Pigmented skin lesion Soft tissue mass Migraines Chronic gastritis Hx of vertigo Hx of colonic polyps Syncopal episodes Constipation History of depression Surgical History S/P total left hip arthroplasty H/O colonoscopy with polypectomy Nausea and vomiting after administration of anesthetic agent History of left breast biopsy History of dilatation and curettage Status post left foot surgery History of tooth extraction History of wisdom tooth extraction History of laparoscopy Hx of tonsillectomy Family History Mother Hearing loss Myocardial infarction Hypertension Colon cancer Coronary heart disease S/P CABG (coronary artery bypass graft) Heart disease Brother Myocardial infarction Asthma Family history of diabetes mellitus Nephrolithiasis Uncle Myocardial infarction Grandfather (Maternal) Colon cancer Father Melanoma Alzheimer disease Other No family history of adverse response to anesthesia Denies family history of Ovarian cancer Prostate cancer Breast cancer Colorectal cancer Uterine cancer Social History Smoking Status: Never smoker Second Hand Exposure: No; Do You Dip or Chew Tobacco: No; Hx Alcohol Use: No Hx Substance Use: No Preferred Language: Chinese Communication Ability: Effective Visual Impairment: No Limitations Hearing Ability: Normal Director Of Litigation Required: No Beliefs That Will Affect Care: None marital status: Current Living Situation: Spouse current occupational status: retired current occupation: worked at a [employer] How many Children do You have: 0 Feels Safe at Home: Yes Childhood Exposure to Second-Hand Smoke: Yes Diet: regular during the past year weight has: remained stable Dental Care, Regularly: Yes Physical Activity Frequency: Daily Physical Activity Frequency Comment: housework Seatbelt Use: always Sunscreen Use: Yes Assistive Devices: Glasses Allergies Allergies Allergy/AdvReac Type Severity Reaction Status Date / Time bee venom protein (honey bee) Allergy Severe Include Unverified 06/14/24 12:23 wasp - Anaphalaxis Milk Containing Products Allergy Severe Gastrointestinal Unverified 06/14/24 12:23 (Dairy) Upset Home Meds Home Medications Medication Instructions Recorded Confirmed rizatriptan 10 mg tablet 10 mg PO UD PRN migraine headache 09/08/23 06/14/24 cholecalciferol (vitamin D3) 25 25 mcg PO DAILY 06/14/24 06/14/24 mcg (1,000 unit) tablet (Vitamin D3) epinephrine 0.3 mg/0.3 mL 0.3 mg IM Q4H PRN Anaphylaxis 06/14/24 06/14/24 injection, auto-injector (EpiPen) potassium citrate 99 mg capsule 99 mg PO DAILY 06/14/24 06/14/24 zinc acetate 25 mg (zinc) capsule 25 mg PO DAILY 06/14/24 06/14/24 Previous Rx's Medication Instructions Recorded pantoprazole 40 mg tablet,delayed 40 mg PO BID #180 tabs 09/26/23 release aspirin 81 mg tablet,delayed 81 mg PO QAM #90 tabs 03/19/24 release atorvastatin 10 mg tablet 10 mg PO QAM #90 tabs 04/11/24 Results & Data (ED) Vital Signs Vital Signs - 24 hr 06/14/24 09:26 06/14/24 10:28 06/14/24 12:53 Temperature 36.7 C Temperature Source Oral Pulse Rate 59 L 60 Pulse Rate [Apical] 58 L Respiratory Rate 20 18 Respiratory Effort / Characteristics Non-Labored Spontaneous Non-Labored Respiratory Depth Normal Normal Respiratory Pattern Regular Blood Pressure 138/57 L Blood Pressure [Right Arm] 145/63 H Blood Pressure Mean 84 Blood Pressure Mean [Right Arm] 90 Pulse Oximetry 100 100 Oxygen Delivery Method Room Air Room Air Sepsis Recent Fever Within 48 Hours No Sepsis New/Unexplained Change in Mental Status No Sepsis Action Taken by Nursing No Action Required Laboratory Data 06/14/24 10:27 06/14/24 10: Lab Results 06/14/24 06/14/24 Range/Units 10: 13:54 WBC 6.72 (4.8-10.8) K/ul RBC 3.84 L (4.20-5.40) M/uL Hgb 9.1 L (12.0-16.0) g/dl Hct 29.4 L (37.0-47.0) % MCV 76.6 L (80.0-100.0) fL MCH 23.7 L (25.0-34.0) pg MCHC 31.0 L (32.0-36.0) g/dL RDW Std Deviation 43.9 (36.4-46.3) fL RDW Coeff of Lee 15.9 H (11.5-14.5) % Plt Count 289 (130-400) K/uL MPV 8.6 L (9.4-12.4) fL Immature Gran % (Auto) 0.4 % Neut % (Auto) 76.9 % Lymph % (Auto) 15.6 % [place] % (Auto) 5.8 % Eos % (Auto) 0.9 % Baso % (Auto) 0.4 % Neut # (Auto) 5.16 (1.40-6.50) K/uL Lymph # (Auto) 1.05 L (1.20-3.40) K/uL [place] # (Auto) 0.39 (0.11-0.59) K/uL Eos # (Auto) 0.06 (0.00-0.50) K/uL Baso # (Auto) 0.03 (0.00-0.20) K/uL Immature Gran # (Auto) 0.03 (0.01-0.20) K/uL Sodium 139 (136-145) mmol/L Potassium 4.0 (3.5-5.1) mmol/L Chloride 108 H (98-107) mmol/L Carbon Dioxide 26 (21-32) mmol/L Anion Gap 5 (3-11) BUN 11 (6-23) mg/dl Creatinine 1.07 (0.6-1.2) mg/dl Est Cr Clr Drug Dosing 44.2 ml/min eGFR 54.51 BUN/Creatinine Ratio 10.3 (10-20) Glucose 88 (70-99(Fasting)) mg/dl Calcium 9.0 (8.6-10.3) mg/dl Magnesium 2.1 (1.7-2.4) mg/dl Total Bilirubin 0.6 (0.2-1.0) mg/dl AST 23 (13-39) U/L ALT 17 (7-52) U/L Alkaline Phosphatase 59 (34-104) U/L Total Creatine Kinase 92 (26-192) U/L Troponin I High Sens 4.4 (0-14) pg/ml Total Protein 7.0 (6.0-8.3) gm/dl Albumin 4.4 (3.4-5.0) gm/dl Globulin 2.6 (2.5-4.0) gm/dl Albumin/Globulin Ratio 1.7 (0.9-2) TSH 3.093 (0.300-4.500) uIu/ml Urine Color Yellow Urine Appearance Clear (Clear) Urine pH 6.5 (4.5-7.5) Ur Specific [place] 1.044 H (1.000-1.030) Urine Protein Negative (Negative) Urine Glucose (UA) Negative (Negative) Urine Ketones 1+ H (Negative) Urine Blood Negative (Negative) Urine Nitrite Negative (Negative) Urine Bilirubin Negative (Negative) Urine Urobilinogen Negative (Negative) Ur Leukocyte Esterase Negative (Negative) Administered Medications Discontinued Medications Sodium Chloride (Nss) 500 mls @ 999 mls/hr IV .Q31M ONE Stop: 06/14/24 10:11 Last Infusion: 06/14/24 11:19 Dose: Infused Documented By: Admin: 06/14/24 10:19 Dose: 999 mls/hr Documented By: JACLYN Ioversol (Optiray 320 125ml) 112 ml IV ONCE ONE Stop: 06/14/24 11:22 Last Admin: 06/14/24 11:21 Dose: 112 ml Documented By: SE Imaging Data Radiologist's Impression: Chest X-Ray 06/14/24 09:24 XR chest 1V portable CLINICAL HISTORY: weakness COMPARISON STUDY: 11/18/2023 FINDINGS: Stable mild cardiomegaly without pulmonary vascular congestion. No effusion, consolidation, or pneumothorax. IMPRESSION: No acute findings. ACT 112: Negative or not required by law. Electronically signed by: Kei Jackson M.D. 06/14/2024 9:53 AM Chest CTA 06/14/24 10:03 CT angio chest PE protocol CT DOSE: 1347.88 mGy.cm HISTORY: hypotension, syncope. TECHNIQUE: Multiple CTA images of the chest were obtained after the intravenous administration of 112 ml Optiray. Coronal and sagittal MIPS were obtained from the axial data set and were submitted for review. All measurements were obtained according to NASCET criteria. A dose lowering technique was utilized adhering to the principles of ALARA. COMPARISON STUDY: 11/16/2023 FINDINGS: There is no pulmonary consolidation, pleural effusion, or pneumothorax. Stable 5 mm right middle lobe pulmonary nodule. No enlarged adenopathy. No pericardial effusion. No thoracic aortic dissection or aneurysm. There are coronary artery and aortic calcifications. No pulmonary embolism. No acute osseous findings. IMPRESSION: No pulmonary embolism or pneumonia seen. ACT 112: Negative or not required by law. The above report was generated using voice recognition software. It may contain grammatical, syntax or spelling errors. Electronically signed by: Kei Jackson M.D. 06/14/2024 11:[address] 06/14/24 10:03 CT head/brain wo con CLINICAL HISTORY: 74 years-old Female with syncope. Acute syncope TECHNIQUE: Multiple axial CT images of the head were obtained without contrast. A dose lowering technique was utilized adhering to the principles of ALARA. COMPARISON: Brain MRI 07/14/2022 FINDINGS: No acute intracranial hemorrhage, midline shift, intracranial mass, hydrocephalus, territorial ischemia or abnormal extra-axial collection. Unchanged prominent perivascular space in the left anterior commissure distribution measuring 1.2 cm. Calcifications of the falx cerebri. Partially empty sella. The calvarium is intact. Small mastoid effusions. The paranasal sinuses are clear. IMPRESSION: No acute intracranial abnormality. ACT 112: Negative or not required by law. The above report was generated using voice recognition software. It may contain grammatical, syntax or spelling errors. Electronically signed by: Jonny Osei M.D. 06/14/2024 11:41 AM Discharge Plan Visit Data Chief Complaint: Syncope Stated Complaint: SYNCOPE, ED Provider: Allen Menjivar Discharge Problem: Syncope and collapse, Acute hypotension, Generalized weakness Forms Stand Alone Forms: [facility] Prescriptions Prescriptions: No Action pantoprazole 40 mg tablet,delayed release (DR/EC) 40 mg PO BID Qty: 180 3RF Rx Instructions: TAKE 1 TABLET BY MOUTH TWICE A DAY atorvastatin 10 mg tablet 10 mg PO QAM Qty: 90 3RF rizatriptan 10 mg tablet 10 mg PO UD MDD 20mg PRN (Reason: migraine headache) Rx Instructions: 10 mg orally prn migraine, repeat after two hours prn aspirin 81 mg Tablet,Delayed Release (Dr/Ec) 81 mg PO QAM Qty: 90 3RF potassium citrate 99 mg Capsule 99 mg PO DAILY zinc acetate 25 mg (zinc) Capsule 25 mg PO DAILY cholecalciferol (vitamin D3) [Vitamin D3] 25 mcg (1,000 unit) Tablet 25 mcg PO DAILY epinephrine [EpiPen] 0.3 mg/0.3 mL Auto-Injector 0.3 mg IM Q4H PRN (Reason: Anaphylaxis) Rx Instructions: Pt needs new script, this is . Referrals Referrals: Miriam Dennis DO [Primary Care Provider] -
--- NOTE | 2024-06-14 14:27 | Electrocardiogram Report ---
Test Reason : Blood Pressure : */* mmHG Vent. Rate : 57 BPM Atrial Rate : 57 BPM P-R Int : 196 ms QRS Dur : 128 ms QT Int : 510 ms P-R-T Axes : 38 13 69 degrees QTcB Int : 496 ms Sinus bradycardia Left bundle branch block Abnormal ECG When compared with ECG of 18-Nov-2023 15:48, Vent. rate has decreased by 29 bpm Nonspecific T wave abnormality, improved in Lateral leads Confirmed by Geronimo Eddy ([id number]) on 06/14/2024 2:27:34 PM Referred By: Confirmed By: Geronimo Eddy
[2024-06-14] MEDS: PANTOprazole 40 MG TAB PO SCH (21:24)
[2024-06-14] MEDS: MELATONIN 3 MG TAB PO PRN (23:40)
--- NOTE | 2024-06-14 23:42 | History & Physical Report ---
Date of Service June 14, 2024 Assessment & Plan (1) Syncope and collapse: Plan: PAtient being admitted with syncopal episode may be secondary to anesthetic for cataract procedure vs vasovagal will monitor patient overnight. will consult cardiology (2) Anxiety: Plan: resume home meds (3) GERD without esophagitis: Plan: resume PPI and will check hemoglobin Admission and Anticipated Discharge Date Admission Date: June 14, 2024 History of Present Illness Chief Complaint: syncope Primary Care Provider: Miriam Dennis, DO 74 yo female presents to the ED for syncope. Patient had cataract surgery 2 days ago and was not herself after the surgery. She appeared to be more aggressive verbally in the evening and was not herself. ON the next day, patient went to the eye doctor appointment and during the appointment she felt cold and clammy and then she passed out. Patient recalls waking up in an ambulance Allergies Allergy/AdvReac Type Severity Reaction Status Date / Time bee venom protein (honey bee) Allergy Severe Include Unverified 06/14/24 12:23 wasp - Anaphalaxis Milk Containing Products Allergy Severe Gastrointestinal Unverified 06/14/24 12:23 (Dairy) Upset Home Medications Medication Instructions Recorded Confirmed Type rizatriptan 10 mg tablet 10 mg PO UD PRN migraine headache 09/08/23 06/14/24 History pantoprazole 40 mg tablet,delayed 40 mg PO BID #180 tabs 09/26/23 06/14/24 Rx release aspirin 81 mg tablet,delayed 81 mg PO QAM #90 tabs 03/19/24 06/14/24 Rx release atorvastatin 10 mg tablet 10 mg PO QAM #90 tabs 04/11/24 06/14/24 Rx cholecalciferol (vitamin D3) 25 25 mcg PO DAILY 06/14/24 06/14/24 History mcg (1,000 unit) tablet (Vitamin D3) epinephrine 0.3 mg/0.3 mL 0.3 mg IM Q4H PRN Anaphylaxis 06/14/24 06/14/24 History injection, auto-injector (EpiPen) potassium citrate 99 mg capsule 99 mg PO DAILY 06/14/24 06/14/24 History zinc acetate 25 mg (zinc) capsule 25 mg PO DAILY 06/14/24 06/14/24 History Past Med/Surg History Problem List Mitral regurgitation Generalized weakness (Acute) Acute hypotension (Acute) Syncope and collapse (Acute) Iron deficiency Anemia FROST (dyspnea on exertion) History of stroke (~1992) MINI STROKE"1992--had memory loss, difficulty talking--still has trouble remembering things, follows with Dr. Guillory - last seen 07/06/23 Mixed stress and urge urinary incontinence Diverticular disease Chronic cystitis Arthritis Anxiety LBBB (left bundle branch block) ongoing since 2006 per EKG report Lipoma of left upper extremity Dizziness Sensorineural hearing loss (SNHL) of both ears Schatzki's ring (06/2023) Migraine without aura, intractable, without status migrainosus Other symptoms and signs involving cognitive functions and awareness Vestibular migraine Cerebral vascular disease Mild cognitive impairment Hyperlipidemia Tubular adenoma (2018) Diverticulosis Urinary incontinence Trochanteric bursitis, left hip Allergic rhinitis (Chronic) Atrophic vaginitis (Chronic) GERD without esophagitis (Chronic) Mixed hearing loss of left ear (Chronic) Recurrent cystitis (Chronic) Medical History Ear fullness Negative middle ear pressure of both ears Inflamed seborrheic keratosis Pigmented skin lesion Soft tissue mass Migraines Chronic gastritis Hx of vertigo frequent, saw Dr. Guillory 07/06/23, feels possibly related to migraines Hx of colonic polyps Syncopal episodes chronic hx per pt, at times associated with hypotension, states work-up was negative, last episode of altered consciousness. States this occurred after hip replacement 07/18 when she went home. Constipation states with daily Metamucil and fibrous foods is managed History of depression Surgical History S/P total left hip arthroplasty H/O colonoscopy with polypectomy Nausea and vomiting after administration of anesthetic agent History of left breast biopsy benign History of dilatation and curettage x2 Status post left foot surgery BENIGN tumor removal History of tooth extraction partial upper and lower History of wisdom tooth extraction History of laparoscopy Hx of tonsillectomy Family History Mother Hearing loss Myocardial infarction Hypertension Colon cancer Coronary heart disease S/P CABG (coronary artery bypass graft) Heart disease Brother Myocardial infarction Asthma Family history of diabetes mellitus Nephrolithiasis Uncle Myocardial infarction Grandfather (Maternal) Colon cancer Father Melanoma Alzheimer disease Other No family history of adverse response to anesthesia Denies family history of Ovarian cancer Prostate cancer Breast cancer Colorectal cancer Uterine cancer Social History Smoking Status: Never smoker Second Hand Exposure: No; Do You Dip or Chew Tobacco: No; Tobacco Cessation Education Requested by Patient: No Hx Alcohol Use: No Hx Substance Use: No Preferred Language: Indonesian Communication Ability: Effective Visual Impairment: No Limitations Hearing Ability: Normal Heater Operator Required: No Beliefs That Will Affect Care: None marital status: Current Living Situation: Spouse current occupational status: retired current occupation: worked at a [employer] How many Children do You have: 0 Other Information That Helps Us Care for You: No Feels Safe at Home: Yes Safety Concerns: Feels Safe At This Time Childhood Exposure to Second-Hand Smoke: Yes Diet: regular during the past year weight has: remained stable Dental Care, Regularly: Yes Physical Activity Frequency: Daily Physical Activity Frequency Comment: housework Seatbelt Use: always Sunscreen Use: Yes Assistive Devices: Glasses Review of Systems Constitutional: no fever and no body aches Eyes: no blind spots Ear, Nose, Mouth, Throat: no ear pain Respiratory: no cough Cardiovascular: no chest pain Gastrointestinal: no abdominal pain Genitourinary: no dysuria Musculoskeletal: no back pain Integumentary: no acne Neurologic: no gait abnormality Psychiatric: no behavioral changes Endocrine: no fatigue Hematologic / Lymphatic: no easy bleeding Allergy / Immunological: no GI upset with certain foods Physical Exam Constitutional: WD/WN, vitals as above Eyes: PERRL, conjunctivae normal, anicteric sclerae ENMT: external ear and nose normal, oropharynx normal Neck: trachea midline, no thyromegaly Respiratory: normal respiratory effort, lungs clear to auscultation Cardiovascular: RRR, no murmur, no edema Gastrointestinal (Abdomen): normal bowel sounds, soft, nontender, no hepatosplenomegaly Musculoskeletal: no cyanosis or clubbing, extremities motor strength 5/5 Skin: no rashes, warm and dry Neurologic: PERRL, EOMI, accommodation nl, no face palsy, no dysarthria Lymphatic: no cervical or axillary lymphadenopathy Results & Data Results & Data Vital Signs (Past 12 Hours) Vital Signs Temp Pulse Pulse Resp BP BP Pulse Ox 06/14/24 20:30 37.1 C 72 20 110/69 98 06/14/24 20:06 76 22 144/72 H 96 06/14/24 19:00 71 16 144/84 H 96 06/14/24 18:33 68 17 144/72 H 98 06/14/24 18:21 71 06/14/24 17:30 70 12 137/82 98 06/14/24 17:00 83 22 147/69 H 100 06/14/24 16:33 70 15 120/60 97 06/14/24 16:00 63 19 128/61 98 06/14/24 15:33 70 17 122/66 97 06/14/24 15:00 80 15 143/87 H 97 06/14/24 14:42 58 L 16 97 06/14/24 14:30 173/78 H 06/14/24 14:27 65 06/14/24 14:15 62 15 100 06/14/24 14:00 64 22 98 06/14/24 14:00 138/77 06/14/24 13:30 69 14 96 06/14/24 13:30 135/71 06/14/24 13:06 55 L 12 99 06/14/24 12:53 145/63 H 06/14/24 12:53 58 L 18 145/63 H 100 06/14/24 12:51 58 L 17 99 06/14/24 12:42 63 15 99 06/14/24 12:15 58 L 13 100 O2 Del Method 06/14/24 20:30 Room Air 06/14/24 20:06 06/14/24 19:00 06/14/24 18:33 06/14/24 18:21 06/14/24 17:30 06/14/24 17:00 06/14/24 16:33 06/14/24 16:00 06/14/24 15:33 06/14/24 15:00 06/14/24 14:42 Room Air 06/14/24 14:30 06/14/24 14:27 06/14/24 14:15 Room Air 06/14/24 14:00 Room Air 06/14/24 14:00 06/14/24 13:30 Room Air 06/14/24 13:30 06/14/24 13:06 Room Air 06/14/24 12:53 04/18/25 12:53 Room Air 06/14/24 12:51 Room Air 06/14/24 12:42 Room Air 06/14/24 12:15 Room Air PG Care Time/CCT Total # of Minutes Spent Total Time Spent with Patient: Total time spent is greater than 50% in coordination of care (as documented) at patient's floor/unit and/or counseling patient: Coding Level of Care Code 01981 INT INP/OBS CARE 3/75MIN Diagnoses Syncope and collapse R55 Anxiety F41.9 GERD without esophagitis K21.9
[2024-06-15] MEDS: ACETAMINOPHEN 325 MG TAB PO PRN (03:35)
[2024-06-15 07:26] LABS: Hematocrit (blood only) 24.5 % (37.0-47.0); Hemoglobin 7.7 g/dl (12.0-16.0); Mean Corpuscular Hemoglobin 23.9 pg (25.0-34.0); Mean Corpuscular Hgb Conc 31.4 g/dL (32.0-36.0); Mean Corpuscular Volume 76.1 fL (80.0-100.0); Platelet Count 244 K/uL (130-400); RDW Coefficient of Variation 15.8 % (11.5-14.5); RDW Standard Deviation 44.1 fL (36.4-46.3); Red Blood Count 3.22 M/uL (4.20-5.40); White Blood Count 4.68 K/ul (4.8-10.8)
[2024-06-15 07:51] LABS: Alanine Aminotransferase 13 U/L (7-52); Albumin Globulin Ratio 1.7 (0.9-2); Albumin Level 3.5 gm/dl (3.4-5.0); Alkaline Phosphatase 48 U/L (34-104); Anion Gap 5 (3-11); Aspartate Aminotransferase 18 U/L (13-39); Bilirubin,Total 0.4 mg/dl (0.2-1.0); Blood Urea Nitrogen 9 mg/dl (6-23); C Reactive Protein < 0.50 mg/dl (0-0.5); Calcium 8.1 mg/dl (8.6-10.3); Carbon Dioxide 23 mmol/L (21-32); Chloride 114 mmol/L (98-107); Creatinine Clr Calc Pharmacy 51.6 ml/min; Globulin 2.1 gm/dl (2.5-4.0); Glucose 88 mg/dl (70-99(Fasting)); Magnesium 2.1 mg/dl (1.7-2.4); Phosphorus 2.8 mg/dl (2.5-4.9); Potassium 3.8 mmol/L (3.5-5.1); Sodium 142 mmol/L (136-145); Total Protein 5.6 gm/dl (6.0-8.3)
[2024-06-15] MEDS: ASPIRIN 81 MG ECTAB PO SCH (09:16)
[2024-06-15] MEDS: MOXIFLOXACIN OPL SCH (09:17)
[2024-06-15] MEDS: [UNRECOGNIZED DRUG - OTHER] OPL SCH (09:17)
[2024-06-15] MEDS: BROMFENAC 0.075% OPL SCH (09:17)
[2024-06-15] MEDS: ATORVASTATIN 10 MG TAB PO SCH (09:17)
[2024-06-15] MEDS: POLYETHYLENE (MIRALAX) 17 GM PACK PO PRN (09:19)
[2024-06-15 10:03] LABS: Iron 16 mcg/dl (35-150)
--- NOTE | 2024-06-15 10:42 | Cardiology Consultation ---
Date of Consultation June 15, 2024 Assessment & Plan (1) Syncope and collapse: (2) FROST (dyspnea on exertion): (3) LBBB (left bundle branch block): (4) Mitral regurgitation: Plan 1. Syncope: Her episode appears to have been vagally mediated. She is very anxious and was quite upset about needing surgery at all. She did not feel well at the time she presented for her follow-up visit yesterday and had symptoms and signs consistent with high vagal tone. She has had similar episodes in the past which all appear to involve the same mechanism. She does have an element of conduction disease and would be worth monitoring her on an outpatient basis. We have not seen any high degree AV block here in the hospital. 2. Coronary disease: Nonobstructive. No current symptoms suggestive of coronary insufficiency or angina. Will continue aggressive secondary prevention with a daily aspirin and low-dose atorvastatin. 3. Mitral regurgitation: Mild to moderate. Not clinically significant at this point 4. Left bundle branch block: Chronic. Not related to significant coronary disease. Preserved LV systolic function on last echocardiogram. Again, given her symptoms it would be worth monitoring her for occult high degree AV block. However, none seen currently. From a cardiac standpoint I think she can be safely discharged today with routine follow-up in our clinic. I will arrange for an outpatient monitor to be mailed to her house so that we can exclude occult intermittent AV conduction disease. History of Present Illness Reason for Consultation: Syncope Requesting Physician: Richar Attending Physician: Socrates Mcqueen History of Present Illness The patient is a 74-year-old woman with a history of coronary artery disease, left bundle branch block and mitral regurgitation who suffered an episode of syncope yesterday. The patient was at her wine consultant office subsequent to a cataract surgery when she began having symptoms of nausea, feeling weak and diaphoresis. She was noted by bystanders to be pale and clammy. She was noted to lose consciousness and EMS was called. Reportedly she had a low heart rate at the time of evaluation in the wine consultant office. The patient recalls waking up in an ambulance. After the event she was feeling poorly for some time. She states that she is not felt well for some time. Her symptoms are fairly diffuse in nature but include an element of exercise intolerance and fatigue. She reports "dizziness" at times but this appears to be more vertigo rather than true lightheadedness or presyncope. She did report another episode of syncope that occurred several weeks ago. Symptoms were similar at that time. This was unwitnessed. She has had an element of exertional dyspnea for some time. This has been evaluated in the outpatient setting with 2 different stress tests and eventually coronary angiography. No obstructive disease was noted. Allergies Allergy/AdvReac Type Severity Reaction Status Date / Time bee venom protein (honey bee) Allergy Severe Include Unverified 06/14/24 12:23 wasp - Anaphalaxis Milk Containing Products Allergy Severe Gastrointestinal Unverified 06/14/24 12:23 (Dairy) Upset Home Medications Medication Instructions Recorded Confirmed Type rizatriptan 10 mg tablet 10 mg PO UD PRN migraine headache 09/08/23 06/14/24 History pantoprazole 40 mg tablet,delayed 40 mg PO BID #180 tabs 09/26/23 06/14/24 Rx release aspirin 81 mg tablet,delayed 81 mg PO QAM #90 tabs 03/19/24 06/14/24 Rx release atorvastatin 10 mg tablet 10 mg PO QAM #90 tabs 04/11/24 06/14/24 Rx cholecalciferol (vitamin D3) 25 25 mcg PO DAILY 06/14/24 06/14/24 History mcg (1,000 unit) tablet (Vitamin D3) epinephrine 0.3 mg/0.3 mL 0.3 mg IM Q4H PRN Anaphylaxis 06/14/24 06/14/24 History injection, auto-injector (EpiPen) potassium citrate 99 mg capsule 99 mg PO DAILY 06/14/24 06/14/24 History zinc acetate 25 mg (zinc) capsule 25 mg PO DAILY 06/14/24 06/14/24 History Patient History Medical History Ear fullness Negative middle ear pressure of both ears Inflamed seborrheic keratosis Pigmented skin lesion Soft tissue mass Migraines Chronic gastritis Hx of vertigo Hx of colonic polyps Syncopal episodes Constipation History of depression Surgical History S/P total left hip arthroplasty H/O colonoscopy with polypectomy Nausea and vomiting after administration of anesthetic agent History of left breast biopsy History of dilatation and curettage Status post left foot surgery History of tooth extraction History of wisdom tooth extraction History of laparoscopy Hx of tonsillectomy Family History Mother Hearing loss Myocardial infarction Hypertension Colon cancer Coronary heart disease S/P CABG (coronary artery bypass graft) Heart disease Brother Myocardial infarction Asthma Family history of diabetes mellitus Nephrolithiasis Uncle Myocardial infarction Grandfather (Maternal) Colon cancer Father Melanoma Alzheimer disease Other No family history of adverse response to anesthesia Denies family history of Ovarian cancer Prostate cancer Breast cancer Colorectal cancer Uterine cancer Social History Smoking Status: Never smoker Second Hand Exposure: No; Do You Dip or Chew Tobacco: No; Tobacco Cessation Education Requested by Patient: No Hx Alcohol Use: No Hx Substance Use: No Preferred Language: Mohawk Communication Ability: Effective Visual Impairment: No Limitations Hearing Ability: Normal Skilled Nursing Facilities Professional Required: No Beliefs That Will Affect Care: None marital status: Current Living Situation: Spouse current occupational status: retired current occupation: worked at a [employer] How many Children do You have: 0 Other Information That Helps Us Care for You: No Feels Safe at Home: Yes Safety Concerns: Feels Safe At This Time Childhood Exposure to Second-Hand Smoke: Yes Diet: regular during the past year weight has: remained stable Dental Care, Regularly: Yes Physical Activity Frequency: Daily Physical Activity Frequency Comment: housework Seatbelt Use: always Sunscreen Use: Yes Assistive Devices: Glasses Review of Systems Review of Systems: Per HPI. Also alternating constipation and loose stools. No melena recently. No significant nausea or vomiting. No lower extremity edema. Physical Exam Physical Exam: She is alert and oriented x3. Mood affect appear normal. Tearful at times. She answered all questions appropriately. HEENT: Sclerae are anicteric. Pupils are equal and reactive to light and accommodation. Extraocular movements were intact. Neuro: Cranial nerves intact Lungs: Lungs are clear to auscultation bilaterally. There are no rales wheezes or rhonchi. She has normal respiratory effort without use of accessory muscles. There is normal pulmonary excursion. Cardiac: The rhythm was regular. S1 and S2 were normal. There are no murmurs on examination. The PMI was not markedly displaced on palpation. Abdomen: The abdomen was soft and nontender. Extremities: Patient has bilateral radial pulses that are equal in intensity. There is no evidence cyanosis or clubbing. There was no evidence of significant peripheral edema bilaterally. Skin: There are no rashes noted on examination today. Results & Data Vital Signs (Past 12 Hours) Vital Signs Temp Pulse Resp BP Pulse Ox O2 Del Method 06/15/24 07:00 36.7 C 84 16 122/61 96 Room Air 06/15/24 03:08 36.6 C 68 18 127/56 L 98 Room Air 06/14/24 23:52 36.6 C 60 18 133/77 98 Room Air Laboratory Results Abnormal Lab Results 06/14/24 06/14/24 06/15/24 10:27 13:54 06:43 WBC 6.72 4.68 L RBC 3.84 L 3.22 L Hgb 9.1 L 7.7 L Hct 29.4 L 24.5 L MCV 76.6 L 76.1 L MCH 23.7 L 23.9 L MCHC 31.0 L 31.4 L RDW Std Deviation 43.9 44.1 RDW Coeff of Lee 15.9 H 15.8 H Plt Count 289 244 MPV 8.6 L 9.0 L Immature Gran % (Auto) 0.4 Neut % (Auto) 76.9 Lymph % (Auto) 15.6 [place] % (Auto) 5.8 Eos % (Auto) 0.9 Baso % (Auto) 0.4 Neut # (Auto) 5.16 Lymph # (Auto) 1.05 L [place] # (Auto) 0.39 Eos # (Auto) 0.06 Baso # (Auto) 0.03 Immature Gran # (Auto) 0.03 Sodium 139 142 Potassium 4.0 3.8 Chloride 108 H 114 H Carbon Dioxide 26 23 Anion Gap 5 5 BUN 11 9 Creatinine 1.07 0.90 Est Cr Clr Drug Dosing 44.2 51.6 eGFR 54.51 67.08 BUN/Creatinine Ratio 10.3 10.0 Glucose 88 88 Calcium 9.0 8.1 L Phosphorus 2.8 Magnesium 2.1 2.1 Iron 16 L Total Bilirubin 0.6 0.4 AST 23 18 ALT 17 13 Alkaline Phosphatase 59 48 Total Creatine Kinase 92 Troponin I High Sens 4.4 C-Reactive Protein < 0.50 B-Natriuretic Peptide 104 H Total Protein 7.0 5.6 L Albumin 4.4 3.5 Globulin 2.6 2.1 L Albumin/Globulin Ratio 1.7 1.7 Procalcitonin 0.03 TSH 3.093 Urine Color Yellow Urine Appearance Clear Urine pH 6.5 Ur Specific [place] 1.044 H Urine Protein Negative Urine Glucose (UA) Negative Urine Ketones 1+ H Urine Blood Negative Urine Nitrite Negative Urine Bilirubin Negative Urine Urobilinogen Negative Ur Leukocyte Esterase Negative Diagnostic Findings Dobutamine echocardiogram 01/11/2024: Ejection fraction 50%. Normal RV size and function. Mild to moderate mitral regurgitation. Regional wall motion abnormality at peak exertion suggestive of ischemia. Cardiac catheterization 03/19/2024: Nonobstructive coronary disease. PG Care Time/CCT Total # of Minutes Spent Total Time Spent with Patient: Total time spent is greater than 50% in coordination of care (as documented) at patient's floor/unit and/or counseling patient: Coding Level of Care Code 06805 INT INP/OBS CARE 3/75MIN Diagnoses Syncope and collapse R55 FROST (dyspnea on exertion) R06.09 LBBB (left bundle branch block) I44.7 Mitral regurgitation I34.0
[2024-06-15 15:26] LABS: Ferritin 7.5 ng/ml (8-388)
[2024-06-15] MEDS: IRON SUCROSE 200 MG in SODIUM CHLORIDE 0.9% 100 ML IV ONE (17:03)
--- NOTE | 2024-06-15 22:34 | Hospitalist Progress Note ---
Date of Service June 15, 2024 Assessment & Plan (1) Syncope and collapse: Plan: PAtient being admitted with syncopal episode may be secondary to anesthetic for cataract procedure vs vasovagal Now with iron deficiency anemia: low iron low ferririn and bleeding history WIll order venofer and will consult GI. may need a colonoscopy sooner rather than later (2) Anxiety: Plan: resume home meds (3) GERD without esophagitis: Plan: resume PPI (4) Iron deficiency anemia: Plan: will monitor hemoglobin, transfuse if hemoglobin below 7. consult GI Admission and Anticipated Discharge Date Admission Date: June 14, 2024 Subjective 74 yo female reports having large amounts at home which she reports is due to her "hemorrhoids". She states at times there is blood running down her legs at home. Today patient reports feeling better and has no new complains. Review of Systems Review of Systems: All systems reviewed & are unremarkable except as noted in HPI & below Physical Exam Constitutional: WD/WN, vitals as above Eyes: PERRL, conjunctivae normal, anicteric sclerae ENMT: external ear and nose normal, oropharynx normal Neck: trachea midline, no thyromegaly Respiratory: normal respiratory effort, lungs clear to auscultation Cardiovascular: RRR, no murmur, no edema Gastrointestinal (Abdomen): normal bowel sounds, soft, nontender, no hepatosplenomegaly Musculoskeletal: no cyanosis or clubbing, extremities motor strength 5/5 Skin: no rashes, warm and dry Neurologic: PERRL, EOMI, accommodation nl, no face palsy, no dysarthria Lymphatic: no cervical or axillary lymphadenopathy Results & Data Results & Data Vital Signs (Past 12 Hours) Vital Signs Temp Pulse Pulse Pulse Resp BP BP 06/15/24 19:48 36.9 C 105 H 18 101/58 L 06/15/24 18:38 63 06/15/24 15:54 36.7 C 63 18 122/67 06/15/24 11:19 36.5 C 64 20 150/74 H 06/15/24 10:41 57 L Pulse Ox O2 Del Method 06/15/24 19:48 95 Room Air 06/15/24 18:38 06/15/24 15:54 98 Room Air 06/15/24 11:19 99 Room Air 06/15/24 10:41 PG Care Time/CCT Total # of Minutes Spent Total Time Spent with Patient: Total time spent is greater than 50% in coordination of care (as documented) at patient's floor/unit and/or counseling patient: Coding Level of Care Code 16956 SUB INP/OBS CARE 3/50MIN Diagnoses Syncope and collapse R55 Anxiety F41.9 GERD without esophagitis K21.9 Iron deficiency anemia D50.9
[2024-06-16 06:24] LABS: BUN Creatinine Ratio 14.7 (10-20); Calcium 9.5 mg/dl (8.6-10.3); Creatinine Clr Calc Pharmacy 48.6 ml/min; Hematocrit (blood only) 26.8 % (37.0-47.0); Hemoglobin 8.4 g/dl (12.0-16.0); Mean Corpuscular Hemoglobin 23.9 pg (25.0-34.0); Mean Corpuscular Hgb Conc 31.3 g/dL (32.0-36.0); Mean Corpuscular Volume 76.1 fL (80.0-100.0); Mean Platelet Volume 9.1 fL (9.4-12.4); Platelet Count 276 K/uL (130-400); Potassium 3.8 mmol/L (3.5-5.1); RDW Coefficient of Variation 16.1 % (11.5-14.5); RDW Standard Deviation 44.3 fL (36.4-46.3); Red Blood Count 3.52 M/uL (4.20-5.40); White Blood Count 6.53 K/ul (4.8-10.8)
[2024-06-16 07:05] VITALS: RESP 20
--- NOTE | 2024-06-16 10:09 | Gastrointestinal Consultation ---
Date of Consultation June 16, 2024 Assessment & Plan (1) Anemia: Pleasant woman with iron deficiency anemia. She describes hemorrhoidal bleeding in a classic fashion. While it is rare for hemorrhoidal bleeding to cause iron deficiency anemia it can happen. However she does need colonoscopy. Her anemia is chronic so colonoscopy can be done electively as an outpatient since this is a holiday that she would like to spend with her family. There is no reason she cannot go home from a GI standpoint History of Present Illness Reason for Consultation: anemia Attending Physician: Socrates Mcqueen History of Present Illness 74 year old female admitted with syncopal spell. On admit she was found to have anemia. She tells me she has had anemia for a long time. She was evaluated with colonoscopy for rectal bleeding in 2019 and was told it was likely from hemorrhoids. She did have a polyp and was due for colonoscopy last year but did not have it done. She had an EGD last year which showed gastritis and a schatzki's ring. She has been on pantoprazole for that. She does still have bleeding. She will bleed into her underclothes and has to wear a pad for that. She bleeds into the toilet water on its own and will have "squirting". She will see red blood and dark clots. This has been going on for a long time. She has not had worse bleeding in the few days prior to her syncopal episode. She has pain from her hemorrhoids but no other pain. Currently she feels well. Allergies Allergy/AdvReac Type Severity Reaction Status Date / Time bee venom protein (honey bee) Allergy Severe Include Unverified 06/14/24 12:23 wasp - Anaphalaxis Milk Containing Products Allergy Severe Gastrointestinal Unverified 06/14/24 12:23 (Dairy) Upset Home Medications Medication Instructions Recorded Confirmed Type rizatriptan 10 mg tablet 10 mg PO UD PRN migraine headache 09/08/23 06/14/24 History pantoprazole 40 mg tablet,delayed 40 mg PO BID #180 tabs 09/26/23 06/14/24 Rx release aspirin 81 mg tablet,delayed 81 mg PO QAM #90 tabs 03/19/24 06/14/24 Rx release atorvastatin 10 mg tablet 10 mg PO QAM #90 tabs 04/11/24 06/14/24 Rx cholecalciferol (vitamin D3) 25 25 mcg PO DAILY 06/14/24 06/14/24 History mcg (1,000 unit) tablet (Vitamin D3) epinephrine 0.3 mg/0.3 mL 0.3 mg IM Q4H PRN Anaphylaxis 06/14/24 06/14/24 History injection, auto-injector (EpiPen) potassium citrate 99 mg capsule 99 mg PO DAILY 06/14/24 06/14/24 History zinc acetate 25 mg (zinc) capsule 25 mg PO DAILY 06/14/24 06/14/24 History Patient History Medical History Ear fullness Negative middle ear pressure of both ears Inflamed seborrheic keratosis Pigmented skin lesion Soft tissue mass Migraines Chronic gastritis Hx of vertigo frequent, saw Dr. Guillory 07/06/23, feels possibly related to migraines Hx of colonic polyps Syncopal episodes chronic hx per pt, at times associated with hypotension, states work-up was negative, last episode of altered consciousness. States this occurred after hip replacement 07/18 when she went home. Constipation states with daily Metamucil and fibrous foods is managed History of depression Surgical History S/P total left hip arthroplasty H/O colonoscopy with polypectomy Nausea and vomiting after administration of anesthetic agent History of left breast biopsy benign History of dilatation and curettage x2 Status post left foot surgery BENIGN tumor removal History of tooth extraction partial upper and lower History of wisdom tooth extraction History of laparoscopy Hx of tonsillectomy Family History Mother Hearing loss Myocardial infarction Hypertension Colon cancer Coronary heart disease S/P CABG (coronary artery bypass graft) Heart disease Brother Myocardial infarction Asthma Family history of diabetes mellitus Nephrolithiasis Uncle Myocardial infarction Grandfather (Maternal) Colon cancer Father Melanoma Alzheimer disease Other No family history of adverse response to anesthesia Denies family history of Ovarian cancer Prostate cancer Breast cancer Colorectal cancer Uterine cancer Social History Smoking Status: Never smoker Second Hand Exposure: No; Do You Dip or Chew Tobacco: No; Tobacco Cessation Education Requested by Patient: No Hx Alcohol Use: No Hx Substance Use: No Preferred Language: Serbian Communication Ability: Effective Visual Impairment: No Limitations Hearing Ability: Normal Ui Lead Developer Required: No Beliefs That Will Affect Care: None marital status: Current Living Situation: Spouse current occupational status: retired current occupation: worked at a [employer] office How many Children do You have: 0 Other Information That Helps Us Care for You: No Feels Safe at Home: Yes Safety Concerns: Feels Safe At This Time Childhood Exposure to Second-Hand Smoke: Yes Diet: regular during the past year weight has: remained stable Dental Care, Regularly: Yes Physical Activity Frequency: Daily Physical Activity Frequency Comment: housework Seatbelt Use: always Sunscreen Use: Yes Assistive Devices: Glasses Review of Systems Review of Systems: All systems reviewed & are unremarkable except as noted in HPI & below Physical Exam Physical Exam: Pleasant woman in no distress Constitutional: WD/WN, vitals as above Neck: trachea midline, no thyromegaly Respiratory: normal respiratory effort, lungs clear to auscultation Cardiovascular: RRR, no murmur, no edema Gastrointestinal (Abdomen): normal bowel sounds, soft, nontender, no hepatosplenomegaly Results & Data Vital Signs (Past 12 Hours) Vital Signs Temp Pulse Resp BP Pulse Ox O2 Del Method 06/16/24 07:00 36.7 C 55 L 20 148/68 H 99 Room Air 06/16/24 03:17 36.5 C 76 16 144/67 H 98 Room Air 06/15/24 23:03 36.9 C 72 16 119/66 96 Room Air Laboratory Results 06/16/24 06/15/24 06/15/24 Range/Units 05:32 23:02 13:57 WBC 6.53 (4.8-10.8) K/ul RBC 3.52 L (4.20-5.40) M/uL Hgb 8.4 L 8.3 L (12.0-16.0) g/dl Hct 26.8 L (37.0-47.0) % MCV 76.1 L (80.0-100.0) fL MCH 23.9 L (25.0-34.0) pg MCHC 31.3 L (32.0-36.0) g/dL RDW Std Deviation 44.3 (36.4-46.3) fL RDW Coeff of Lee 16.1 H (11.5-14.5) % Plt Count 276 (130-400) K/uL MPV 9.1 L (9.4-12.4) fL Sodium 140 (136-145) mmol/L Potassium 3.8 (3.5-5.1) mmol/L Chloride 108 H (98-107) mmol/L Carbon Dioxide 27 (21-32) mmol/L Anion Gap 5 (3-11) BUN 14 (6-23) mg/dl Creatinine 0.95 (0.6-1.2) mg/dl Est Cr Clr Drug Dosing 48.6 ml/min eGFR 62.87 BUN/Creatinine Ratio 14.7 (10-20) Glucose 109 H (70-99(Fasting)) mg/dl Calcium 9.5 (8.6-10.3) mg/dl Unsaturated IBC 341 (155-355) mcg/dl Transferrin 284 (200-360) mg/dl Ferritin 7.5 L (8-388) ng/ml Diagnostic Findings Chest X-Ray 06/14/24 09:24 XR chest 1V portable CLINICAL HISTORY: weakness COMPARISON STUDY: 11/18/2023 FINDINGS: Stable mild cardiomegaly without pulmonary vascular congestion. No effusion, consolidation, or pneumothorax. IMPRESSION: No acute findings. ACT 112: Negative or not required by law. Electronically signed by: Kei Jackson M.D. 06/14/2024 9:53 AM Chest CTA 06/14/24 10:03 CT angio chest PE protocol CT DOSE: 1347.88 mGy.cm HISTORY: hypotension, syncope. TECHNIQUE: Multiple CTA images of the chest were obtained after the intravenous administration of 112 ml Optiray. Coronal and sagittal MIPS were obtained from the axial data set and were submitted for review. All measurements were obtained according to NASCET criteria. A dose lowering technique was utilized adhering to the principles of ALARA. COMPARISON STUDY: 11/16/2023 FINDINGS: There is no pulmonary consolidation, pleural effusion, or pneumothorax. Stable 5 mm right middle lobe pulmonary nodule. No enlarged adeno marino. No pericardial effusion. No thoracic aortic dissection or aneurysm. There are coronary artery and aortic calcifications. No pulmonary embolism. No acute osseous findings. IMPRESSION: No pulmonary embolism or pneumonia seen. ACT 112: Negative or not required by law. The above report was generated using voice recognition software. It may contain grammatical, syntax or spelling errors. Electronically signed by: Kei Jackson M.D. 06/14/2024 11:[address] 06/14/24 10:03 CT head/brain wo con CLINICAL HISTORY: 74 years-old Female with syncope. Acute syncope TECHNIQUE: Multiple axial CT images of the head were obtained without contrast. A dose lowering technique was utilized adhering to the principles of ALARA. COMPARISON: Brain MRI 07/14/2022 FINDINGS: No acute intracranial hemorrhage, midline shift, intracranial mass, hydrocephalus, territorial ischemia or abnormal extra-axial collection. Unchanged prominent perivascular space in the left anterior commissure distribution measuring 1.2 cm. Calcifications of the falx cerebri. Partially empty sella. The calvarium is intact. Small mastoid effusions. The paranasal sinuses are clear. IMPRESSION: No acute intracranial abnormality. ACT 112: Negative or not required by law. The above report was generated using voice recognition software. It may contain grammatical, syntax or spelling errors. Electronically signed by: Jonny Osei M.D. 06/14/2024 11:41 AM (1) Anemia Anemia type: unspecified type Qualified Code(s): D64.9 - Anemia, unspecified
[2024-06-16 10:55] VITALS: TEMP 97.7; O2SAT 96
[2024-06-16] MEDS: IRON SUCROSE 200 MG in SODIUM CHLORIDE 0.9% 100 ML IV ONE (13:16)
[2024-06-16 14:48] VITALS: BP 101/58; PULSE 63
--- NOTE | 2024-06-18 10:49 | Discharge Summary ---
Discharge Summary Date of Service June 16, 2024 Principal Dx & Hospital Course #1 = Principal Diagnosis (1) Syncope and collapse: PAtient being admitted with syncopal episode may be secondary to anesthetic for cataract procedure vs vasovagal Now with iron deficiency anemia: low iron low ferritin and bleeding history Patient received venofer x 2. Likely low iron deficiency anemia contributing will need outpatient colonoscopy. (2) Anxiety: resume home meds (3) GERD without esophagitis: resume PPI (4) Iron deficiency anemia: hemoglobin stable/ Admission HPI Per Admitting Provider 74 yo female presents to the ED for syncope. Patient had cataract surgery 2 days ago and was not herself after the surgery. She appeared to be more aggressive verbally in the evening and was not herself. ON the next day, patient went to the eye doctor appointment and during the appointment she felt cold and clammy and then she passed out. Patient recalls waking up in an ambulance Discharge Exam Constitutional WD/WN, vitals as above Eyes PERRL, conjunctivae normal, anicteric sclerae ENMT external ear and nose normal, oropharynx normal Neck trachea midline, no thyromegaly Respiratory normal respiratory effort, lungs clear to auscultation Cardiovascular RRR, no murmur, no edema Gastrointestinal (Abdomen) normal bowel sounds, soft, nontender, no hepatosplenomegaly Musculoskeletal no cyanosis or clubbing, extremities motor strength 5/5 Skin no rashes, warm and dry Neurologic PERRL, EOMI, accommodation nl, no face palsy, no dysarthria Lymphatic no cervical or axillary lymphadenopathy Discharge Plan Discharge Items Patient Disposition: Home - Self-Care Reason For Visit: SYNCOPE Discharge Diagnosis: syncope Activity: Resume your previous activity Non-emergency contact: Primary Care Provider Call non-emergency contact if: you have any medication questions Follow-up/Referrals: Miriam Dennis DO [Primary Care Provider] - 06/27/24 9:20 am (Hospital follow up on June 27 at 9:20 am.) Diet: Regular Addtl Attending Provider Instructions: Appears this episode was likely due to a side effect of the anesthetic. This could have been complicated by your anemia which likely was caused by your bleeding. We will recommend you hold the aspirin in the short term and take iron supplement 3 times a week. Please followup with your PCP within 1 week . Your PCP will likely schedule a colonoscopy. Your PCP will likely recheck your labs at the followup appointment. Pending Studies at Discharge: No Stand-Alone Forms: My [facility], Smoking Cessation Medications and DC Order Prescriptions: New ferrous sulfate 325 mg (65 mg iron) tablet 325 mg PO Qty: 20 0RF Rx Instructions: Take one tablet, once in the morning on Monday and Monday Continued pantoprazole 40 mg tablet,delayed release (DR/EC) 40 mg PO BID Qty: 180 3RF Rx Instructions: TAKE 1 TABLET BY MOUTH TWICE A DAY atorvastatin 10 mg tablet 10 mg PO QAM Qty: 90 3RF rizatriptan 10 mg tablet 10 mg PO UD MDD 20mg PRN (Reason: migraine headache) Rx Instructions: 10 mg orally prn migraine, repeat after two hours prn potassium citrate 99 mg Capsule 99 mg PO DAILY zinc acetate 25 mg (zinc) Capsule 25 mg PO DAILY cholecalciferol (vitamin D3) [Vitamin D3] 25 mcg (1,000 unit) Tablet 25 mcg PO DAILY epinephrine [EpiPen] 0.3 mg/0.3 mL Auto-Injector 0.3 mg IM Q4H PRN (Reason: Anaphylaxis) Rx Instructions: Pt needs new script, this is . Held aspirin 81 mg Tablet,Delayed Release (Dr/Ec) 81 mg PO QAM Qty: 90 3RF Hold Instructions: Provider's Order until cleared by PCP Discharge Orders: Discharge Order (Routine); Ordered 06/16/24 Ordered By: Socrates Mcqueen Admission Data Admit Date/Time: 06/14/24 14:15 Attending Provider: Socrates Mcqueen Admit Provider: Socrates Mcqueen Primary Care Provider: Miriam Dennis Other Providers: Geronimo Eddy; Socrates Mcqueen; Antonia Devlin Jr Other Interventions: Discharge Summary Assessment (RN) Last Done: 06/16/24 14:45 Hospital Stay Data Consultations 06/14/24 13:47 ED Decision to Admit Stat 06/14/24 15:17 Consult Cardiology Routine 06/15/24 16:35 Consult Gastroenterology Routine Diagnostic Imagining Performed 06/14/24 10:03 CT angio chest PE protocol Stat CT head/brain wo con Stat Pending Results Patient Have Any Pending Studies at Discharge: No Discharge Instructions Given to Patient (Per Discharging Provider) Appears this episode was likely due to a side effect of the anesthetic. This could have been complicated by your anemia which likely was caused by your bleeding. We will recommend you hold the aspirin in the short term and take iron supplement 3 times a week. Please followup with your PCP within 1 week . Your PCP will likely schedule a colonoscopy. Your PCP will likely recheck your labs at the followup appointment. Total Time Total Time Spent Total Time Spent (In Minutes): 35 Coding Level of Care Code 49326 INP/OBS DISCH >30 MIN Diagnoses Syncope and collapse R55 Anxiety F41.9 GERD without esophagitis K21.9 Iron deficiency anemia D50.9
== END 2024-06-16 15:34 | disposition home or self-care (01) | DRG 812 ==
LOC: ED 09:15 → 2S 14:15 → INTOOBSV 14:15 → 2S 20:24

== ENCOUNTER 2025-01-13 23:47 | Observation (INO) ==
[2025-01-13] MEDS: SODIUM CHLORIDE 0.9% 1,000 ML IV SCH (23:56)
--- NOTE | 2025-01-13 23:56 | Emergency Department Note ---
Impression & Plan Syncope and collapse, Head injury Admission ED Provider Note HPI: History obtained from patient. The patient is a 74-year-old female who presents emergency department after an apparent syncopal event. Patient states that she was putting some wood into her stove in her house today and she began to feel dizzy and then just remembers waking up on the ground. Patient noted that she had a big hematoma to the left part of her forehead and therefore she came to the ER to be assessed. Patient arrives via EMS. On arrival here to the ED the patient states that she is feeling "much better" than she was before. She does not have any focal deficits, she denies any chest pain or shortness of breath. ROS: - Per HPI Differential Diagnosis: Vasovagal event, orthostatic hypotension, arrhythmia, high degree heart block, dehydration/acute kidney injury, critical electrolyte abnormalities, amongst other potential pathologies. *Outpatient medications and allergy history reviewed. PE: General: Alert HEENT: Normocephalic, trachea midline Eyes: Extraocular eye movement is intact, no scleral erythema Pulmonary: Clear to auscultation bilaterally, no wheezing Cardio: Regular rate and rhythm GI: Abdomen is soft to palpation : No suprapubic tenderness MSK: No evidence of trauma or malformation of the extremities, no edema Skin: No evidence of rash Neuro: Alert, no focal deficits, equal bilateral project management manager strength, symmetrical facial movements are appreciated Psychiatric: Cooperative INDEPENDENT INTERPRETATIONS: media monitor: (As interpreted by myself): - An order was placed for continuous cardiac monitoring - Patient was noted to be in sinus rhythm with a rate of 70 EKG: (As interpreted by myself): Rate: 75 Rhythm: Normal sinus rhythm Intervals: QRS 128 ms, otherwise within normal limits ST changes: No ST elevation Time: 2352 Interventions provided in ED: - IV fluid bolus Medical Decision Making: IV was established and lab work obtained, patient was placed on nuclear monitoring technician. CT imaging of the head was obtained that did not show any evidence of any acute intracranial process. EKG shows normal sinus rhythm with a rate of 75, without any evidence of any malignant arrhythmia or high degree heart block per my interpretation. Lab work shows no evidence of acute kidney injury, hemoglobin is normal, there is no leukocytosis. Troponin is negative, EKG per my interpretation does not show any evidence of any acute ischemic changes. CT imaging of the head was obtained that did not show any evidence of any acute intracranial process. On my reevaluation the patient states that she still does not feel well with ambulation, she states she feels lightheaded. She states she has been dealing with this for quite some time and does have some baseline ambulatory dysfunction. Given this, I did discuss admission with the patient and she was in agreement. [facility] hospitalist service was consulted for admission. Consultants/Discussions held with other healthcare providers: - Hospitalist, Dr. Jolley Disposition discussion held by myself with: - Patient and family member at the bedside Diagnosis: 1. Syncope and collapse, acute 2. Closed head injury, acute 3. Ambulatory dysfunction, acute on chronic Disposition: Admission Kevin Javier DO Emergency Medicine Past Med/Surg History Problem List (Updated 01/14/25 @ 01:44 by Kevin Javier DO) Head injury (Acute) Syncope and collapse (Acute) Coronary artery disease Prediabetes Iron deficiency anemia Mitral regurgitation Iron deficiency Chronic cystitis Diverticular disease Lipoma of left upper extremity Dizziness Sensorineural hearing loss (SNHL) of both ears Schatzki's ring (06/2023) History of stroke (~1992) MINI STROKE"1992--had memory loss, difficulty talking--still has trouble remembering things, follows with Dr. Guillory - last seen 07/06/23 Migraine without aura, intractable, without status migrainosus Other symptoms and signs involving cognitive functions and awareness Vestibular migraine Cerebral vascular disease Mild cognitive impairment LBBB (left bundle branch block) ongoing since 2006 per EKG report Anxiety Arthritis Mixed stress and urge urinary incontinence Hyperlipidemia Tubular adenoma (2019) Diverticulosis Urinary incontinence Allergic rhinitis (Chronic) Atrophic vaginitis (Chronic) GERD without esophagitis (Chronic) Mixed hearing loss of left ear (Chronic) Recurrent cystitis (Chronic) Medical History Memory problem sometimes trouble with memory since stroke. Pt reports she can read but has trouble with comprehension retention (pt unsure if this is from stroke or another reason). Hx neuro eval/testing due to family hx dementia. "passed with flying colors". History of anesthesia reaction Passed out a day or two after hip replacement surgery, don't remember a lot of it. Unknown if rxn to anesthesia. [facility]. Dr. Ryan. Passed out at Dr. jenae for follow up on left cataract sx 05/2024, don't remember a lot of the information, taken by ambulance [facility]. Pt reports contributed to anemia or rxn to anesthesia. History of endometriosis History of stroke (1992) mini stroke in 1992. Pt reports she was told she was left with some brain damage and does experience some trouble with memory at times. Mitral regurgitation flap that doesn't open and close correctly per pt. CAD (coronary artery disease) History of heart attack per pt had a heart attack at some point in hx, unknown when occurred, heart damage to left side of heart noted on cath 02/2024. LBBB (left bundle branch block) Prediabetes denies Hyperlipidemia Arthritis Schatzki's ring GERD (gastroesophageal reflux disease) Depression zoloft helping Anxiety Chronic cystitis current symptoms: frequent urination and burning. Education provided. Pt plans to call pcp today 09/24/24 to discuss. Syncope and collapse hx 05/2024, passed out at follow up cataract DrDl jenae. - ambulance to [place] for eval. Episode contributed to anemia or anesthesia rxn. Generalized weakness FROST (dyspnea on exertion) Anemia hx iron infusions, most recent September 05 2024. Ear fullness Negative middle ear pressure of both ears Inflamed seborrheic keratosis Pigmented skin lesion Soft tissue mass left arm, upcoming plan for removal/not yet scheduled. Migraines Chronic gastritis Hx of vertigo frequent, saw Dr. Guillory 07/06/23, feels possibly related to migraines pt reports no episodes since received iron infusions Hx of colonic polyps Syncopal episodes chronic hx per pt, at times associated with hypotension, states work-up was negative, last episode of altered consciousness. States this occurred after hip replacement 07/18 when she went home. Pat call 09/24/24: most recent passed out at 's office for cataract follow up (ambulance called, may 2024 , eval [facility]). Episode contributed to anemia or rxn to anesthesia per pt. Constipation improved Surgical History History of esophagogastroduodenoscopy (EGD) History of cardiac cath (03/19/24) History of cataract surgery S/P total left hip arthroplasty H/O colonoscopy with polypectomy Nausea and vomiting after administration of anesthetic agent History of left breast biopsy History of dilatation and curettage Status post left foot surgery History of tooth extraction History of wisdom tooth extraction History of laparoscopy Hx of tonsillectomy Family History Mother Hearing loss Myocardial infarction Hypertension Colon cancer Coronary heart disease S/P CABG (coronary artery bypass graft) Heart disease Brother Myocardial infarction Asthma Family history of diabetes mellitus Nephrolithiasis Uncle Myocardial infarction Grandfather (Maternal) Colon cancer Father Melanoma Alzheimer disease Other No family history of adverse response to anesthesia Denies family history of Ovarian cancer Prostate cancer Breast cancer Colorectal cancer Uterine cancer Social History Smoking Status: Never smoker Second Hand Exposure: No; Do You Dip or Chew Tobacco: No; Hx Alcohol Use: No Hx Substance Use: No Preferred Language: Swiss Communication Ability: Effective Communication Ability Comment: hx stroke, sometimes trouble w/memory. Carry a calendar of med info. Visual Impairment: No Limitations Hearing Ability: Normal Gate Services Supervisor Required: No Beliefs That Will Affect Care: None marital status: Current Living Situation: Spouse Current Living Situation Comment: and my cat current occupational status: retired current occupation: worked at a [employer] office How many Children do You have: 0 Feels Safe at Home: Yes Childhood Exposure to Second-Hand Smoke: Yes Diet: regular during the past year weight has: remained stable Dental Care, Regularly: Yes Physical Activity Frequency: Daily Physical Activity Frequency Comment: housework Seatbelt Use: always Sunscreen Use: Yes Assistive Devices: Glasses and Other Allergies Allergies Allergy/AdvReac Type Severity Reaction Status Date / Time bee venom protein (honey bee) Allergy Severe Include Verified 11/12/24 11:41 wasp - I just swell at sting site No Known Drug Allergies Allergy Mild Verified 11/12/24 11:41 Milk Containing Products AdvReac Severe Gastrointestinal Verified 11/12/24 11:41 (Dairy) Upset Home Meds Home Medications Medication Instructions Recorded Confirmed rizatriptan 10 mg tablet 10 mg PO UD PRN migraine headache 09/08/23 11/12/24 cholecalciferol (vitamin D3) 25 0 mcg PO UD 06/14/24 11/12/24 mcg (1,000 unit) tablet (Vitamin D3) potassium citrate 99 mg capsule 0 mg PO UD 06/14/24 11/12/24 zinc acetate 25 mg (zinc) capsule 50 mg PO Q2D 06/14/24 11/12/24 buspirone 5 mg tablet 5 mg PO BID PRN Anxiety 09/17/24 11/12/24 Beyond Brew Mushroom Blend 1 dose PO QAM 09/24/24 11/12/24 biotin 10,000 mcg chewable tablet 0 mcg PO DAILY 09/24/24 11/12/24 (Hair, Skin and Nails (biotin)) [id number]-[id number]-[id number] tablet 1 tab PO DAILY 09/24/24 11/12/24 sertraline 25 mg tablet 25 mg PO QAM 09/24/24 11/12/24 Previous Rx's Medication Instructions Recorded atorvastatin 10 mg tablet 10 mg PO QAM #90 tabs 04/11/24 pantoprazole 40 mg tablet,delayed 40 mg PO BID #180 tabs 07/11/24 release Results & Data (ED) Vital Signs Vital Signs - 24 hr 01/13/25 23:49 01/13/25 23:56 01/14/25 00:00 Temperature 36.7 C Temperature Source Oral Pulse Rate 85 76 Respiratory Rate 20 20 Respiratory Effort / Characteristics Non-Labored Respiratory Depth Normal Respiratory Pattern Regular Blood Pressure 167/95 H 147/81 H Blood Pressure Mean 119 119 Pulse Oximetry 97 97 96 Oxygen Delivery Method Room Air Room Air Room Air Sepsis New/Unexplained Change in Mental Status N/A Sepsis Action Taken by Nursing No Action Required 01/14/25 00:15 01/14/25 00:31 01/14/25 01:00 Temperature Temperature Source Pulse Rate 73 73 66 Respiratory Rate 14 20 18 Respiratory Effort / Characteristics Respiratory Depth Respiratory Pattern Blood Pressure 118/71 144/76 H 142/75 H Blood Pressure Mean 113 77 100 Pulse Oximetry 98 98 96 Oxygen Delivery Method Room Air Room Air Room Air Sepsis New/Unexplained Change in Mental Status Sepsis Action Taken by Nursing 01/14/25 01:30 Temperature Temperature Source Pulse Rate 75 Respiratory Rate 18 Respiratory Effort / Characteristics Respiratory Depth Respiratory Pattern Blood Pressure 142/74 H Blood Pressure Mean 118 Pulse Oximetry 96 Oxygen Delivery Method Room Air Sepsis New/Unexplained Change in Mental Status Sepsis Action Taken by Nursing Laboratory Data 01/13/25 00:00 01/14/25 00:00 Lab Results 11/17/25 11/18/25 11/18/25 Range/Units 00:00 00:00 01:10 WBC 7.80 (4.8-10.8) K/ul RBC 4.00 L (4.20-5.40) M/uL Hgb 12.6 (12.0-16.0) g/dL Hct 36.1 L (37.0-47.0) % MCV 90.3 (80.0-100.0) fL MCH 31.5 (25.0-34.0) pg MCHC 34.9 (32.0-36.0) g/dL RDW Std Deviation 41.0 (36.4-46.3) fL RDW Coeff of Lee 12.4 (11.5-14.5) % Plt Count 265 (130-400) K/uL MPV 9.2 L (9.4-12.4) fL Immature Gran % (Auto) 0.4 % Neut % (Auto) 59.8 % Lymph % (Auto) 27.8 % Mineral % (Auto) 9.0 % Eos % (Auto) 2.4 % Baso % (Auto) 0.6 % Neut # (Auto) 4.66 (1.40-6.50) K/uL Lymph # (Auto) 2.17 (1.20-3.40) K/uL Mineral # (Auto) 0.70 H (0.11-0.59) K/uL Eos # (Auto) 0.19 (0.00-0.50) K/uL Baso # (Auto) 0.05 (0.00-0.20) K/uL Immature Gran # (Auto) 0.03 (0.01-0.20) K/uL PT 10.5 (9.0-12.0) Seconds INR 1.0 (0.9-1.1) Sodium 137 (136-145) mmol/L Potassium 3.9 (3.5-5.1) mmol/L Chloride 105 (98-107) mmol/L Carbon Dioxide 23 (21-32) mmol/L Anion Gap 9 (3-11) BUN 20 (6-23) mg/dl Creatinine 0.79 (0.6-1.2) mg/dl Est Cr Clr Drug Dosing 61.6 ml/min eGFR 78.44 BUN/Creatinine Ratio 25.3 H (10-20) Glucose 106 H (70-99(Fasting)) mg/dl Calcium 9.8 (8.6-10.3) mg/dl Magnesium 2.0 (1.7-2.4) mg/dl Total Bilirubin 0.3 (0.2-1.0) mg/dl AST 19 (13-39) U/L ALT 17 (7-52) U/L Alkaline Phosphatase 93 (34-104) U/L Troponin I High Sens 5.6 (0-14) pg/ml Total Protein 6.9 (6.0-8.3) gm/dl Albumin 4.1 (3.4-5.0) gm/dl Globulin 2.8 (2.5-4.0) gm/dl Albumin/Globulin Ratio 1.5 (0.9-2) Urine Color Yellow Urine Appearance Clear (Clear) Urine pH 6.0 (4.5-7.5) Ur Specific [place] 1.005 (1.000-1.030) Urine Protein Negative (Negative) Urine Glucose (UA) Negative (Negative) Urine Ketones Negative (Negative) Urine Blood Negative (Negative) Urine Nitrite Negative (Negative) Urine Bilirubin Negative (Negative) Urine Urobilinogen Negative (Negative) Ur Leukocyte Esterase Negative (Negative) Urine Comment Administered Medications Discontinued Medications Sodium Chloride (Nss) 1,000 mls @ 999 mls/hr IV .Q1H1M ITZEL Stop: 01/14/25 00:45 Last Infusion: 01/14/25 00:57 Dose: Infused Documented By: Admin: 01/13/25 23:56 Dose: 999 mls/hr Documented By: AMY Imaging Data Radiologist's Impression: Head CT 01/13/25 23:57 EXAM: CT head/brain wo con CLINICAL HISTORY: fall, L forehead hematoma TECHNIQUE: Axial non-contrast CT scan of the brain was performed from the skull base to the high parietal region in axial, sagittal and coronal reconstructions. One of the following dose reduction techniques were utilized for this exam: Automated exposure control, adjustment of the mA and/or kV according to patient size, use of iterative reconstruction. COMPARISON: 06/14/2024 FINDINGS: Brain Parenchyma: Normal attenuation of the cerebral hemispheres, cerebellum, and brainstem. No evidence of acute infarct, hemorrhage, or mass effect. Hypodense areas seen at the left basal ganglia and left temporal lobe suggestive of chronic infarcts. Tiny periventricular hypodensities suggestive of microvascular ischaemic changes. Ventricular System: Prominent ventricular system and extra-axial CSF spaces suggestive of age-related involutional changes. Subarachnoid Spaces: Normal sulci and cisterns. No evidence of subarachnoid hemorrhage or extra-axial fluid collections. Cerebellum and Brainstem: No masses, lesions, or areas of abnormal density. Orbits: Normal appearance of the globes, optic nerves, and extraocular muscles. No evidence of orbital masses or abnormal density. Sinuses: Clear paranasal sinuses. No evidence of sinusitis or mucosal thickening. Mastoid Air Cells: Clear mastoid air cells. No evidence of mastoiditis. Skull: Subcutaneous haematoma seen at the left frontal region. No fracture seen. IMPRESSION: 1. Subcutaneous haematoma seen at the left frontal region. Interval new finding. 2. No fracture seen. 3. No intra or extra axial haemorrhage. 4. Hypodense areas seen at the left basal ganglia and left temporal lobe suggestive of chronic infarcts. Stable. 5. Appropriate age-related involutional changes and microvascular ischaemic changes. Stable. Electronically signed by Danilo Su 01-14-2025 01:00 AM Wrist X-Ray 01/14/25 00:17 EXAM: XR wrist LT min 3V routine CLINICAL HISTORY: Fall. TECHNIQUE: X-ray images of the left wrist were obtained in anteroposterior (AP), lateral, and oblique projections. COMPARISON: No prior studies available for comparison. FINDINGS: Bone Structure: Bone structure is normal and aligned. No evidence of fracture or dislocation. No osseous lesions or abnormalities identified. Diffuse osteopenia Joint Spaces: Joint spaces are normal. Soft Tissues: Questionable soft tissue swelling on the dorsal aspect of the wrist. Additional Findings: A well-corticated density is noted distal to the ulnar styloid. Correlate clinically Another faint calcific density is noted medial to the aforementioned ossicle. IMPRESSION: 1. No evidence of obvious fracture or dislocation. 2. A well-corticated density is noted distal to the ulnar styloid, likely Os triangular. Correlate clinically. 3. Questionable soft tissue swelling on the dorsal aspect of the wrist. 4. Diffuse osteopenia. Disclaimer: A subtle bone abnormality or fracture may not be readily apparent on X-rays, thus clinical correlation and further imaging including follow-up CT, MRI, or follow-up X-rays are advised as needed. Electronically signed by Danilo Su 01-14-2025 01:54 AM Discharge Plan Visit Data Chief Complaint: Syncope Stated Complaint: Syncope, Fall, Head Injury ED Provider: Kevin Javier Discharge Problem: Syncope and collapse, Head injury Patient Disposition: Home - Self-Care Condition: Good Discharge Instructions Janice/Other Patient Handouts: ED [facility] Syncope (Fainting) Activity Restrictions/Additional Instructions: Please follow-up with your primary care doctor in 2 to 3 days for reassessment and further care. Please return to the emergency room if you develop any new or acutely worsening symptoms. Forms Stand Alone Forms: My [facility], Important Visit Information Prescriptions Prescriptions: No Action atorvastatin 10 mg tablet 10 mg PO QAM Qty: 90 3RF pantoprazole 40 mg tablet,delayed release (DR/EC) 40 mg PO BID Qty: 180 3RF Rx Instructions: TAKE 1 TABLET BY MOUTH TWICE A DAY buspirone 5 mg tablet 5 mg PO BID PRN (Reason: Anxiety) rizatriptan 10 mg tablet 10 mg PO UD MDD 20mg PRN (Reason: migraine headache) Rx Instructions: 10 mg orally prn migraine, repeat after two hours prn potassium citrate 99 mg Capsule 0 mg PO UD Patient Comments: currently out of zinc acetate 25 mg (zinc) Capsule 50 mg PO Q2D cholecalciferol (vitamin D3) [Vitamin D3] 25 mcg (1,000 unit) Tablet 0 mcg PO UD Patient Comments: currently out of epnbarn-ecocpfejx-taon Tablet 1 tab PO DAILY Hair, Skin and Nails (biotin) 10,000 mcg Tablet,Chewable 0 mcg PO DAILY Patient Comments: it's a gummy sertraline 25 mg tablet 25 mg PO QAM Beyond Brew Mushroom Blend 1 dose PO QAM Patient Comments: Beyond Brew Mushroom Blend Powder Referrals Referrals: Miriam Dennis DO [Primary Care Provider] -
[2025-01-14 00:16] LABS: Hematocrit (blood only) 36.1 % (37.0-47.0); Hemoglobin 12.6 g/dL (12.0-16.0); Immature Granulocytes # (auto) 0.03 K/uL (0.01-0.20); Immature Granulocytes % (auto) 0.4 %; Mean Corpuscular Hemoglobin 31.5 pg (25.0-34.0); Mean Corpuscular Volume 90.3 fL (80.0-100.0); Platelet Count 265 K/uL (130-400); RDW Standard Deviation 41.0 fL (36.4-46.3); Red Blood Count 4.00 M/uL (4.20-5.40); White Blood Count 7.80 K/ul (4.8-10.8)
[2025-01-14 00:33] LABS: Alanine Aminotransferase 17.0 U/L (7-52); Albumin Globulin Ratio 1.5 (0.9-2); Albumin Level 4.1 gm/dl (3.4-5.0); Alkaline Phosphatase 93.0 U/L (34-104); Anion Gap 9.0 (3-11); Bilirubin,Total 0.3 mg/dl (0.2-1.0); Blood Urea Nitrogen 20.0 mg/dl (6-23); Calcium 9.8 mg/dl (8.6-10.3); Carbon Dioxide 23.0 mmol/L (21-32); Chloride 105.0 mmol/L (98-107); Creatinine Clr Calc Pharmacy 61.6 ml/min; Globulin 2.8 gm/dl (2.5-4.0); Glucose 106.0 mg/dl (70-99(Fasting)); Magnesium 2.0 mg/dl (1.7-2.4); Potassium 3.9 mmol/L (3.5-5.1); Sodium 137.0 mmol/L (136-145); Total Protein 6.9 gm/dl (6.0-8.3)
--- NOTE | 2025-01-14 01:00 | CT Scan Report ---
EXAM: CT head/brain wo con CLINICAL HISTORY: fall, L forehead hematoma TECHNIQUE: Axial non-contrast CT scan of the brain was performed from the skull base to the high parietal region in axial, sagittal and coronal reconstructions. One of the following dose reduction techniques were utilized for this exam: Automated exposure control, adjustment of the mA and/or kV according to patient size, use of iterative reconstruction. COMPARISON: 06/14/2024 FINDINGS: Brain Parenchyma: Normal attenuation of the cerebral hemispheres, cerebellum, and brainstem. No evidence of acute infarct, hemorrhage, or mass effect. Hypodense areas seen at the left basal ganglia and left temporal lobe suggestive of chronic infarcts. Tiny periventricular hypodensities suggestive of microvascular ischaemic changes. Ventricular System: Prominent ventricular system and extra-axial CSF spaces suggestive of age-related involutional changes. Subarachnoid Spaces: Normal sulci and cisterns. No evidence of subarachnoid hemorrhage or extra-axial fluid collections. Cerebellum and Brainstem: No masses, lesions, or areas of abnormal density. Orbits: Normal appearance of the globes, optic nerves, and extraocular muscles. No evidence of orbital masses or abnormal density. Sinuses: Clear paranasal sinuses. No evidence of sinusitis or mucosal thickening. Mastoid Air Cells: Clear mastoid air cells. No evidence of mastoiditis. Skull: Subcutaneous haematoma seen at the left frontal region. No fracture seen. IMPRESSION: 1. Subcutaneous haematoma seen at the left frontal region. Interval new finding. 2. No fracture seen. 3. No intra or extra axial haemorrhage. 4. Hypodense areas seen at the left basal ganglia and left temporal lobe suggestive of chronic infarcts. Stable. 5. Appropriate age-related involutional changes and microvascular ischaemic changes. Stable. Electronically signed by Danilo Su 01-14-2025 01:00 AM
[2025-01-14 01:06] LABS: INR 1.0 (0.9-1.1); Prothrombin Time 10.5 Seconds (9.0-12.0)
[2025-01-14 01:30] LABS: Appearance Urine Clear (Clear); Glucose Urine UA Negative (Negative)
--- NOTE | 2025-01-14 01:55 | XRay Report ---
EXAM: XR wrist LT min 3V routine CLINICAL HISTORY: Fall. TECHNIQUE: X-ray images of the left wrist were obtained in anteroposterior (AP), lateral, and oblique projections. COMPARISON: No prior studies available for comparison. FINDINGS: Bone Structure: Bone structure is normal and aligned. No evidence of fracture or dislocation. No osseous lesions or abnormalities identified. Diffuse osteopenia Joint Spaces: Joint spaces are normal. Soft Tissues: Questionable soft tissue swelling on the dorsal aspect of the wrist. Additional Findings: A well-corticated density is noted distal to the ulnar styloid. Correlate clinically Another faint calcific density is noted medial to the aforementioned ossicle. IMPRESSION: 1. No evidence of obvious fracture or dislocation. 2. A well-corticated density is noted distal to the ulnar styloid, likely Os triangular. Correlate clinically. 3. Questionable soft tissue swelling on the dorsal aspect of the wrist. 4. Diffuse osteopenia. Disclaimer: A subtle bone abnormality or fracture may not be readily apparent on X-rays, thus clinical correlation and further imaging including follow-up CT, MRI, or follow-up X-rays are advised as needed. Electronically signed by Danilo Su 01-14-2025 01:54 AM
--- NOTE | 2025-01-14 03:27 | History & Physical Report ---
Date of Service January 14, 2025 Assessment & Plan (1) Syncope and collapse: (2) Coronary artery disease: (3) Head injury: (4) Left wrist injury: Plan The patient is a 74-year-old female with a past medical history including coronary artery disease, mitral regurgitation, diverticular disease, SNHL bilaterally, Schatzki's ring, history of CVA, vestibular migraine, LBBB, mild cognitive impairment, hyperlipidemia, Morse's esophagitis, and recurrent cystitis. She reports that she was in the room at home, walking, and the next thing she remembers she was waking up on the floor after an unknown interval time. She did have some head trauma with a left frontotemporal hematoma, and swollen left wrist. CT scan of head showed a subcu hematoma left frontal area, and chronic infarcts in the left basal ganglia and left temporal lobe. Chest x- ray was negative. Left wrist showed no acute fracture but did show soft tissue swelling. Right shoulder x-ray was negative. From the ED patient received normal saline 1 L fluid bolus. She was then referred to the [facility] service for further evaluation and treatment. Syncope and collapse- Patient had a loss of consciousness for an unknown length of time. When she awoke, she did not have loss of bladder or bowel or bladder control, she was able to slowly pull her self up to a sitting position, and called EMS. She had a brief episode of feeling woozy before she lost consciousness. She is not aware of any palpitations or breathing issues prior to the episode. CT scan of head without contrast shows a left frontal subcu hematoma. CT scanning it also showed chronic left basal ganglia and left temporal lobe infarcts. Chest x-ray was negative X-ray right shoulder was negative Neurologic examination is normal. Order MRI brain without contrast. The patient will be admitted to telemetry for serial cardiac enzymes, serial EKG, cardiac rhythm monitoring and a 2-D echocardiogram with Dopplers. Unlikely a seizure event, however, could consider EEG if indicated later in the day. Appears mildly dehydrated, will place on LR at 80 mL/h x 1 L. Left wrist injury- X-ray with no acute fracture If persistent or progressive symptoms, do further imaging and/or consult ortho CAD/hypertension- Patient underwent cardiac catheterization on 03/19/2024 with recommendation for medical management. She is not aware of any palpitations prior to the event. Potassium 3.9, magnesium 2.0 Hyperlipidemia- Continue atorvastatin 10 mg every morning Check a fasting lipid panel GERD- Continue pantoprazole 40 mg twice daily Vestibular migraine- Continue rizatriptan 10 mg daily- Anxiety- Continue sertraline Continue buspirone 5 mg twice daily as needed History of mixed stress and urge urinary incontinence- Normal urinalysis History of Present Illness Primary Care Provider: Miriam Dennis DO The patient is a 74-year-old female with a past medical history including coronary artery disease, mitral regurgitation, diverticular disease, SNHL bilaterally, Schatzki's ring, history of CVA, vestibular migraine, LBBB, mild cognitive impairment, hyperlipidemia, Morse's esophagitis, and recurrent cystitis. She reports that she was in the room at home, walking, and the next thing she remembers she was waking up on the floor after an unknown interval time. She did have some head trauma with a left frontotemporal hematoma, and swollen left wrist. CT scan of head showed a subcu hematoma left frontal area, and chronic infarcts in the left basal ganglia and left temporal lobe. Chest x- ray was negative. Left wrist showed no acute fracture but did show soft tissue swelling. Right shoulder x-ray was negative. From the ED patient received normal saline 1 L fluid bolus. [facility] for further evaluation and treatment. Allergies Allergy/AdvReac Type Severity Reaction Status Date / Time bee venom protein (honey bee) Allergy Severe Include Verified 11/12/24 11:41 wasp - I just swell at sting site No Known Drug Allergies Allergy Mild Verified 11/12/24 11:41 Milk Containing Products AdvReac Severe Gastrointestinal Verified 11/12/24 11:41 (Dairy) Upset Home Medications Medication Instructions Recorded Confirmed Type rizatriptan 10 mg tablet 10 mg PO UD PRN migraine headache 09/08/23 01/14/25 History atorvastatin 10 mg tablet 10 mg PO QAM #90 tabs 04/11/24 01/14/25 Rx pantoprazole 40 mg tablet,delayed 40 mg PO BID #180 tabs 07/11/24 01/14/25 Rx release buspirone 5 mg tablet 5 mg PO BID PRN Anxiety 09/17/24 01/14/25 History sertraline 25 mg tablet 25 mg PO QAM 09/24/24 01/14/25 History multivitamin 1 tab PO DAILY 01/14/25 01/14/25 History Past Med/Surg History Problem List (Updated 01/14/25 @ 03:41 by Daren Jolley MD) Left wrist injury Head injury (Acute) Syncope and collapse (Acute) Coronary artery disease Prediabetes Iron deficiency anemia Mitral regurgitation Iron deficiency Chronic cystitis Diverticular disease Lipoma of left upper extremity Dizziness Sensorineural hearing loss (SNHL) of both ears Schatzki's ring (06/2023) History of stroke (~1992) MINI STROKE"1992--had memory loss, difficulty talking--still has trouble remembering things, follows with Dr. Guillory - last seen 07/06/23 Migraine without aura, intractable, without status migrainosus Other symptoms and signs involving cognitive functions and awareness Vestibular migraine Cerebral vascular disease Mild cognitive impairment LBBB (left bundle branch block) ongoing since 2006 per EKG report Anxiety Arthritis Mixed stress and urge urinary incontinence Hyperlipidemia Tubular adenoma (2019) Diverticulosis Urinary incontinence Allergic rhinitis (Chronic) Atrophic vaginitis (Chronic) GERD without esophagitis (Chronic) Mixed hearing loss of left ear (Chronic) Recurrent cystitis (Chronic) Medical History Memory problem sometimes trouble with memory since stroke. Pt reports she can read but has trouble with comprehension retention (pt unsure if this is from stroke or another reason). Hx neuro eval/testing due to family hx dementia. "passed with flying colors". History of anesthesia reaction Passed out a day or two after hip replacement surgery, don't remember a lot of it. Unknown if rxn to anesthesia. [facility]. Dr. Ryan. Passed out at Dr. emanuel for follow up on left cataract sx 05/2024, don't remember a lot of the information, taken by ambulance [facility]. Pt reports contributed to anemia or rxn to anesthesia. History of endometriosis History of stroke (1992) mini stroke in 1992. Pt reports she was told she was left with some brain damage and does experience some trouble with memory at times. Mitral regurgitation flap that doesn't open and close correctly per pt. CAD (coronary artery disease) History of heart attack per pt had a heart attack at some point in hx, unknown when occurred, heart damage to left side of heart noted on cath 02/2024. LBBB (left bundle branch block) Prediabetes denies Hyperlipidemia Arthritis Schatzki's ring GERD (gastroesophageal reflux disease) Depression zoloft helping Anxiety Chronic cystitis current symptoms: frequent urination and burning. Education provided. Pt plans to call pcp today 09/24/24 to discuss. Syncope and collapse hx 05/2024, passed out at follow up cataract Dr. jenae. - ambulance to al for eval. Episode contributed to anemia or anesthesia rxn. Generalized weakness FROTS (dyspnea on exertion) Anemia hx iron infusions, most recent September 05 2024. Ear fullness Negative middle ear pressure of both ears Inflamed seborrheic keratosis Pigmented skin lesion Soft tissue mass left arm, upcoming plan for removal/not yet scheduled. Migraines Chronic gastritis Hx of vertigo frequent, saw Dr. Guillory 07/06/23, feels possibly related to migraines pt reports no episodes since received iron infusions Hx of colonic polyps Syncopal episodes chronic hx per pt, at times associated with hypotension, states work-up was negative, last episode of altered consciousness. States this occurred after hip replacement 07/18 when she went home. Pat call 09/24/24: most recent passed out at dr's office for cataract follow up (ambulance called, may 2024 , eval [facility]). Episode contributed to anemia or rxn to anesthesia per pt. Constipation improved Surgical History History of esophagogastroduodenoscopy (EGD) History of cardiac cath (03/19/24) History of cataract surgery S/P total left hip arthroplasty H/O colonoscopy with polypectomy Nausea and vomiting after administration of anesthetic agent History of left breast biopsy History of dilatation and curettage Status post left foot surgery History of tooth extraction History of wisdom tooth extraction History of laparoscopy Hx of tonsillectomy Family History Mother Hearing loss Myocardial infarction Hypertension Colon cancer Coronary heart disease S/P CABG (coronary artery bypass graft) Heart disease Brother Myocardial infarction Asthma Family history of diabetes mellitus Nephrolithiasis Uncle Myocardial infarction Grandfather (Maternal) Colon cancer Father Melanoma Alzheimer disease Other No family history of adverse response to anesthesia Denies family history of Ovarian cancer Prostate cancer Breast cancer Colorectal cancer Uterine cancer Social History Smoking Status: Never smoker Second Hand Exposure: No; Do You Dip or Chew Tobacco: No; Hx Alcohol Use: No Hx Substance Use: No Preferred Language: Sinhala Communication Ability: Effective Communication Ability Comment: hx stroke, sometimes trouble w/memory. Carry a c alendar of [employer]. Visual Impairment: No Limitations Hearing Ability: Normal Clam Digger Required: No Beliefs That Will Affect Care: None marital status: Current Living Situation: Spouse Current Living Situation Comment: and my cat current occupational status: retired current occupation: worked at a [employer] office How many Children do You have: 0 Feels Safe at Home: Yes Childhood Exposure to Second-Hand Smoke: Yes Diet: regular during the past year weight has: remained stable Dental Care, Regularly: Yes Physical Activity Frequency: Daily Physical Activity Frequency Comment: housework Seatbelt Use: always Sunscreen Use: Yes Assistive Devices: Glasses and Other Review of Systems Review of Systems: The patient denies chest pain, palpitations, shortness of breath, dyspnea on exertion, cough, lower extremity swelling, sore throat, fevers, chills, sweats, nausea, vomiting, diarrhea , constipation, abdominal pain, pelvic pain, blood in urine or stool, dysuria, urinary frequency or urgency, focal weakness, numbness or tingling in arms or legs, generalized arthralgias or myalgias, back or neck pain, or night sweats. The review of systems is otherwise negative other than for that already noted above, and at least 10 systems have been reviewed. Physical Exam Physical Exam: The patient is awake, alert and oriented 3, well developed and well nourished, left frontal hematoma, sitting upright in bed and in no acute distress. HEENT--PERRL, EOMI, mucous membranes and oropharynx mildly dry. Neck--supple. No JVD. No bruits. Thyroid normal, trachea midline, no adenopathy. Heart--normal S1 and S2. No murmurs, rubs or gallops. Lungs--clear bilaterally, no respiratory distress, no accessory muscle use. Abdomen--normal bowel sounds and soft. Nontender. Nondistended, no hernias or masses, no organomegaly. Extremities--no cyanosis or clubbing. No edema. There are good distal pulses b/l. Dermatologic--normal skin turgor, normal color, no abnormal lymph nodes, no rash. Neurologic--cranial nerves II through XII grossly intact. Rheumatologic--normal range of motion except for left wrist with swelling Psychiatric--normal affect. Results & Data Results & Data Vital Signs (Past 12 Hours) Vital Signs Temp Pulse Resp BP Pulse Ox O2 Del Method 01/14/25 02:30 66 138/72 95 Room Air 01/14/25 02:00 70 20 137/74 98 Room Air 01/14/25 01:30 75 18 142/74 H 96 Room Air 01/14/25 01:00 66 18 142/75 H 96 Room Air 01/14/25 00:31 73 20 144/76 H 98 Room Air 01/14/25 00:15 73 14 118/71 98 Room Air 01/14/25 00:00 76 20 147/81 H 96 Room Air 01/13/25 23:56 97 Room Air 01/13/25 23:49 36.7 C 85 20 167/95 H 97 Room Air Laboratory Results Laboratory Results WBC 7.80 K/ul (4.8-10.8) 01/13/25 00:00 RBC 4.00 M/uL (4.20-5.40) L 01/13/25 00:00 Hgb 12.6 g/dL (12.0-16.0) 01/13/25 00:00 Hct 36.1 % (37.0-47.0) L 01/13/25 00:00 MCV 90.3 fL (80.0-100.0) 01/13/25 00:00 MCH 31.5 pg (25.0-34.0) 01/13/25 00:00 MCHC 34.9 g/dL (32.0-36.0) 01/13/25 00:00 RDW Std Deviation 41.0 fL (36.4-46.3) 01/13/25 00:00 RDW Coeff of Lee 12.4 % (11.5-14.5) 01/13/25 00:00 Plt Count 265 K/uL (130-400) 01/13/25 00:00 MPV 9.2 fL (9.4-12.4) L 01/13/25 00:00 Immature Gran % (Auto) 0.4 % 01/13/25 00:00 Neut % (Auto) 59.8 % 01/13/25 00:00 Lymph % (Auto) 27.8 % 01/13/25 00:00 [place] % (Auto) 9.0 % 01/13/25 00:00 Eos % (Auto) 2.4 % 01/13/25 00:00 Baso % (Auto) 0.6 % 01/13/25 00:00 Neut # (Auto) 4.66 K/uL (1.40-6.50) 01/13/25 00:00 Lymph # (Auto) 2.17 K/uL (1.20-3.40) 01/13/25 00:00 [place] # (Auto) 0.70 K/uL (0.11-0.59) H 01/13/25 00:00 Eos # (Auto) 0.19 K/uL (0.00-0.50) 01/13/25 00:00 Baso # (Auto) 0.05 K/uL (0.00-0.20) 01/13/25 00:00 Immature Gran # (Auto) 0.03 K/uL (0.01-0.20) 01/13/25 00:00 PT 10.5 Seconds (9.0-12.0) 01/13/25 00:00 INR 1.0 (0.9-1.1) 01/13/25 00:00 Sodium 137 mmol/L (136-145) 01/14/25 00:00 Potassium 3.9 mmol/L (3.5-5.1) 01/14/25 00:00 Chloride 105 mmol/L (98-107) 01/14/25 00:00 Carbon Dioxide 23 mmol/L (21-32) 01/14/25 00:00 Anion Gap 9 (3-11) 01/14/25 00:00 BUN 20 mg/dl (6-23) 01/14/25 00:00 Creatinine 0.79 mg/dl (0.6-1.2) 01/14/25 00:00 Est Cr Clr Drug Dosing 61.6 ml/min 01/14/25 00:00 eGFR 78.44 01/14/25 00:00 BUN/Creatinine Ratio 25.3 (10-20) H 01/14/25 00:00 Glucose 106 mg/dl (70-99(Fasting)) H 01/14/25 00:00 Calcium 9.8 mg/dl (8.6-10.3) 01/14/25 00:00 Magnesium 2.0 mg/dl (1.7-2.4) 01/14/25 00:00 Total Bilirubin 0.3 mg/dl (0.2-1.0) 01/14/25 00:00 AST 19 U/L (13-39) 01/14/25 00:00 ALT 17 U/L (7-52) 01/14/25 00:00 Alkaline Phosphatase 93 U/L (34-104) 01/14/25 00:00 Troponin I High Sens 5.6 pg/ml (0-14) 01/14/25 00:00 Total Protein 6.9 gm/dl (6.0-8.3) 01/14/25 00:00 Albumin 4.1 gm/dl (3.4-5.0) 01/14/25 00:00 Globulin 2.8 gm/dl (2.5-4.0) 01/14/25 00:00 Albumin/Globulin Ratio 1.5 (0.9-2) 01/14/25 00:00 Urine Color Yellow 01/14/25 01:10 Urine Appearance Clear (Clear) 01/14/25 01:10 Urine pH 6.0 (4.5-7.5) 01/14/25 01:10 Ur Specific [place] 1.005 (1.000-1.030) 01/14/25 01:10 Urine Protein Negative (Negative) 01/14/25 01:10 Urine Glucose (UA) Negative (Negative) 01/14/25 01:10 Urine Ketones Negative (Negative) 01/14/25 01:10 Urine Blood Negative (Negative) 01/14/25 01:10 Urine Nitrite Negative (Negative) 01/14/25 01:10 Urine Bilirubin Negative (Negative) 01/14/25 01:10 Urine Urobilinogen Negative (Negative) 01/14/25 01:10 Ur Leukocyte Esterase Negative (Negative) 01/14/25 01:10 Urine Comment 01/14/25 01:[address] 01/13/25 23:57 EXAM: CT head/brain wo con CLINICAL HISTORY: fall, L forehead hematoma TECHNIQUE: Axial non-contrast CT scan of the brain was performed from the skull base to the high parietal region in axial, sagittal and coronal reconstructions. One of the following dose reduction techniques were utilized for this exam: Automated exposure control, adjustment of the mA and/or kV according to patient size, use of iterative reconstruction. COMPARISON: 06/14/2024 FINDINGS: Brain Parenchyma: Normal attenuation of the cerebral hemispheres, cerebellum, and brainstem. No evidence of acute infarct, hemorrhage, or mass effect. Hypodense areas seen at the left basal ganglia and left temporal lobe suggestive of chronic infarcts. Tiny periventricular hypodensities suggestive of microvascular ischaemic changes. Ventricular System: Prominent ventricular system and extra-axial CSF spaces suggestive of age-related involutional changes. Subarachnoid Spaces: Normal sulci and cisterns. No evidence of subarachnoid hemorrhage or extra-axial fluid collections. Cerebellum and Brainstem: No masses, lesions, or areas of abnormal density. Orbits: Normal appearance of the globes, optic nerves, and extraocular muscles. No evidence of orbital masses or abnormal density. Sinuses: Clear paranasal sinuses. No evidence of sinusitis or mucosal thickening. Mastoid Air Cells: Clear mastoid air cells. No evidence of mastoiditis. Skull: Subcutaneous haematoma seen at the left frontal region. No fracture seen. IMPRESSION: 1. Subcutaneous haematoma seen at the left frontal region. Interval new finding. 2. No fracture seen. 3. No intra or extra axial haemorrhage. 4. Hypodense areas seen at the left basal ganglia and left temporal lobe suggestive of chronic infarcts. Stable. 5. Appropriate age-related involutional changes and microvascular ischaemic changes. Stable. Electronically signed by Danilo Su 01-14-2025 01:00 AM Wrist X-Ray 01/14/25 00:17 EXAM: XR wrist LT min 3V routine CLINICAL HISTORY: Fall. TECHNIQUE: X-ray images of the left wrist were obtained in anteroposterior (AP), lateral, and oblique projections. COMPARISON: No prior studies available for comparison. FINDINGS: Bone Structure: Bone structure is normal and aligned. No evidence of fracture or dislocation. No osseous lesions or abnormalities identified. Diffuse osteopenia Joint Spaces: Joint spaces are normal. Soft Tissues: Questionable soft tissue swelling on the dorsal aspect of the wrist. Additional Findings: A well-corticated density is noted distal to the ulnar styloid. Correlate clinically Another faint calcific density is noted medial to the aforementioned ossicle. IMPRESSION: 1. No evidence of obvious fracture or dislocation. 2. A well-corticated density is noted distal to the ulnar styloid, likely Os triangular. Correlate clinically. 3. Questionable soft tissue swelling on the dorsal aspect of the wrist. 4. Diffuse osteopenia. Disclaimer: A subtle bone abnormality or fracture may not be readily apparent on X-rays, thus clinical correlation and further imaging including follow-up CT, MRI, or follow-up X-rays are advised as needed. Electronically signed by Danilo Su 01-14-2025 01:54 AM Shoulder X-Ray 01/14/25 01:21 EXAM: XR shoulder RT min 2V routine CLINICAL HISTORY: Fall. TECHNIQUE: X-ray images of the right shoulder were obtained in anteroposterior (AP) and Y-view projections. COMPARISON: No prior studies available for comparison. FINDINGS: Bone Structure: Bone structure is normal and aligned. No evidence of fracture or dislocation. Humeral head is properly positioned in the glenoid fossa. No osseous lesions or abnormalities identified. Joint Spaces: Osteoarthritic changes of the acromiocalcicular joint. Glenohumeral joint space is normal. No evidence of joint subluxation. Soft Tissues: Soft tissues appear normal and unremarkable. No soft tissue swelling, calcifications, or foreign bodies noted. Additional Findings: No signs of osteoarthritis, bone spurs, lytic or sclerotic lesions. IMPRESSION: 1. No evidence of acute fracture, dislocation, or significant soft tissue abnormalities. 2. Acromioclavicular osteoarthritic changes. Disclaimer: A subtle bone abnormality or fracture may not be readily apparent on X-rays, thus clinical correlation and further imaging including follow-up CT, MRI, or follow-up X-rays are advised as needed. Electronically signed by Danilo Su 01-14-2025 03:32 AM Code Status & VTE Plan Code Status Full code VTE Prophylaxis Plan VTE Prophylaxis will be ordered: Yes PG Care Time/CCT Total # of Minutes Spent Total Time Spent with Patient: Total time spent is greater than 50% in coordination of care (as documented) at patient's floor/unit and/or counseling patient: Coding Level of Care Code 33984 INT INP/OBS CARE 3/75MIN Diagnoses Syncope and collapse R55 Coronary artery disease I25.10 Head injury S09.90XA Left wrist injury S69.92XA
--- NOTE | 2025-01-14 03:32 | XRay Report ---
EXAM: XR shoulder RT min 2V routine CLINICAL HISTORY: Fall. TECHNIQUE: X-ray images of the right shoulder were obtained in anteroposterior (AP) and Y-view projections. COMPARISON: No prior studies available for comparison. FINDINGS: Bone Structure: Bone structure is normal and aligned. No evidence of fracture or dislocation. Humeral head is properly positioned in the glenoid fossa. No osseous lesions or abnormalities identified. Joint Spaces: Osteoarthritic changes of the acromiocalcicular joint. Glenohumeral joint space is normal. No evidence of joint subluxation. Soft Tissues: Soft tissues appear normal and unremarkable. No soft tissue swelling, calcifications, or foreign bodies noted. Additional Findings: No signs of osteoarthritis, bone spurs, lytic or sclerotic lesions. IMPRESSION: 1. No evidence of acute fracture, dislocation, or significant soft tissue abnormalities. 2. Acromioclavicular osteoarthritic changes. Disclaimer: A subtle bone abnormality or fracture may not be readily apparent on X-rays, thus clinical correlation and further imaging including follow-up CT, MRI, or follow-up X-rays are advised as needed. Electronically signed by Danilo Su 01-14-2025 03:32 AM
[2025-01-14] MEDS ORDERED: busPIRone 5 MG TAB PO PRN (04:07)
[2025-01-14] MEDS ORDERED: RIZATRIPTAN BENZOATE 10 MG TAB PO PRN (04:07)
--- NOTE | 2025-01-14 04:24 | Magnetic Resonance Report ---
EXAM: MR brain wo con CLINICAL HISTORY: Syncope, head trauma, hx of CVA's. TECHNIQUE: MRI of the brain was performed without contrast, with multiplanar sequences obtained. COMPARISON: 01/12/2025 FINDINGS: Brain Parenchyma: A few minute foci of abnormal signal intensity are seen in the white matter of both cerebral hemispheres with diffuse periventricular white matter changes denoting mild chronic microvascular changes. A well-defined cystic lesion of CSF signal intensity is seen at the left basal ganglionic region, measuring 10 x 8 mm, likely Virchow-Froy space. No evidence of acute infarction or hemorrhage. Normal rojo-white matter differentiation. No mass lesions or focal cortical abnormalities identified. Ventricles and Sulci: Mildly prominent lateral ventricles, third ventricle, and fourth ventricle. No evidence of hydrocephalus or ventriculomegaly. Prominent sylvian fissures, sulci, and cisterns. Posterior Fossa: The cerebellum and brainstem appear normal without evidence of mass lesions or signal abnormalities. Cranial Nerves: Normal course and appearance of cranial nerves identified. Vessels: No evidence of vascular malformations or aneurysms. Intracranial arteries and veins appear normal without evidence of stenosis or occlusion. Orbits and Skull Base: Orbits and skull base structures are normal without evidence of abnormalities. Left frontal scalp soft tissue thickening measures 8 mm at maximum thickness, likely contusion/ hematoma. IMPRESSION: 1. No acute intracranial abnormality identified. 2. Mild diffuse chronic ischemic and involutionary age-related changes of the brain. More sensitive demonstration in the MRI study. 3. Left frontal scalp soft tissue thickening measures 8 mm at maximum thickness, likely scalp contusion/ hematoma. No significant changes. 4. A well-defined cystic lesion of CSF signal intensity is seen at the left basal ganglionic region, measuring 10 x 8 mm, Likely Virchow-Froy space. No changes. Electronically signed by Danilo Su 01-14-2025 04:23 AM
[2025-01-14] MEDS: LACTATED RINGER'S 1,000 ML IV SCH (04:43)
[2025-01-14] MEDS: SERTRALINE HCL 50 MG TABLET PO SCH (08:38)
[2025-01-14] MEDS: MULTIVITAMIN TAB PO SCH (08:39)
[2025-01-14] MEDS: ATORVASTATIN 10 MG TAB PO SCH (08:40)
[2025-01-14] MEDS ORDERED: MAGNESIUM HYDROXIDE SUSP 30 ML UDC PO PRN (08:46)
[2025-01-14] MEDS ORDERED: MELATONIN 3 MG TAB PO PRN (08:46)
[2025-01-14] MEDS ORDERED: POLYETHYLENE (MIRALAX) 17 GM PACK PO PRN (08:46)
[2025-01-14] MEDS ORDERED: ALUMINUM/MAGNESIUM SUSP 30 ML UDC PO PRN (08:46)
[2025-01-14] MEDS ORDERED: ONDANSETRON INJ 2 MG/ML 2 ML VIAL IV PRN (08:46)
[2025-01-14] MEDS: ACETAMINOPHEN 325 MG TAB PO PRN (10:45)
--- NOTE | 2025-01-14 13:55 | XCELERA ---
[id number] \\[id number]
--- NOTE | 2025-01-14 15:46 | Communication Note ---
Date of Service: January 14, 2025 Follow up. Admitted early this morning for syncope Has had recurrent syncopal episodes, including this spring. Has prodrome of lightheadedness, tinnitus etc. Sounds vasovagal. See Dr. Eddy note 06/15/24 description of vasovagal syncope. Also has symptoms of orthostatic lightheadedness as well as intermittent vertigo. Today feels okay, forehead sore from hematoma, has neck tension type pain but that is chronic. Left wrist pain with no deformity on exam and negative xray. Right shoulder pain and exam suggestive of rotator cuff strain perhaps supraspinatus but strength intact, xray neg for fracture/dislocation. Only new med recently is sertraline. Brain MRI - forehead hematoma, old left basal ganglia and left temporal lobe infarcts Tele - remains in NSR Echo - normal LV EF 55-60%, no rwma's, mild MR. Nothing to account for syncopal episodes. CTA head/neck unremarkable 06/2021 Event monitor 07/23/24 - only was monitored for 1 hour and 13 min! Other Active Problems: Saw ENT and neuro in past for vertigo - thought vestibular migraines but NR to migraine medicine. ENT suggested possible referral to vestibular neurography evaluation and neurotology evaluation at [facility] CAD with cath 02/2024 moderate CAD, medical management. Chronic LBBB Followed by heme/onc for iron deficiency anemia A/P: Most likely vasovagal syncope, recurrent episodes. Separately has chronic vertigo episodes. -check orthostatic VS -consult PT, co lightheadedness and unsteadiness -monitor tele, consider repeat attempt at event monitor -should be able to go home in AM
[2025-01-15 06:19] LABS: Hematocrit (blood only) 36.6 % (37.0-47.0); Hemoglobin 12.6 g/dL (12.0-16.0); Immature Granulocytes # (auto) 0.04 K/uL (0.01-0.20); Immature Granulocytes % (auto) 0.6 %; Mean Corpuscular Hemoglobin 31.7 pg (25.0-34.0); Mean Corpuscular Volume 92.0 fL (80.0-100.0); Platelet Count 227 K/uL (130-400); RDW Standard Deviation 41.9 fL (36.4-46.3); Red Blood Count 3.98 M/uL (4.20-5.40); White Blood Count 6.47 K/ul (4.8-10.8)
[2025-01-15 06:42] LABS: Alanine Aminotransferase 14.0 U/L (7-52); Albumin Globulin Ratio 1.7 (0.9-2); Albumin Level 4.0 gm/dl (3.4-5.0); Alkaline Phosphatase 71.0 U/L (34-104); Anion Gap 7.0 (3-11); Bilirubin,Total 0.4 mg/dl (0.2-1.0); Blood Urea Nitrogen 21.0 mg/dl (6-23); Calcium 9.6 mg/dl (8.6-10.3); Carbon Dioxide 27.0 mmol/L (21-32); Chloride 106.0 mmol/L (98-107); Creatinine Clr Calc Pharmacy 49.5 ml/min; Globulin 2.3 gm/dl (2.5-4.0); Glucose 120.0 mg/dl (70-99(Fasting)); Magnesium 2.1 mg/dl (1.7-2.4); Potassium 3.9 mmol/L (3.5-5.1); Sodium 140.0 mmol/L (136-145); Total Protein 6.3 gm/dl (6.0-8.3)
--- NOTE | 2025-01-15 13:21 | Discharge Summary ---
Discharge Summary Date of Service January 15, 2025 Principal Dx & Hospital Course #1 = Principal Diagnosis (1) Syncope and collapse: (2) Coronary artery disease: (3) Head injury: (4) Left wrist injury: Plan 01/15 - patient came in with syncope and LOC - had a head CT and Brain MRI - negative for acute process; chronic ischemic changes noted as well as L scalp contusion - echo was done and no significant valvular heart disease or wall motion abnormality, normal LVEF - EKG - NSR w LBBB - she states she feels better and wants to go home - PT eval done The patient is a 74-year-old female with a past medical history including coronary artery disease, mitral regurgitation, diverticular disease, SNHL bilaterally, Schatzki's ring, history of CVA, vestibular migraine, LBBB, mild cognitive impairment, hyperlipidemia, Morse's esophagitis, and recurrent cystitis. She reports that she was in the room at home, walking, and the next thing she remembers she was waking up on the floor after an unknown interval time. She did have some head trauma with a left frontotemporal hematoma, and swollen left wrist. CT scan of head showed a subcu hematoma left frontal area, and chronic infarcts in the left basal ganglia and left temporal lobe. Chest x- ray was negative. Left wrist showed no acute fracture but did show soft tissue swelling. Right shoulder x-ray was negative. From the ED patient received normal saline 1 L fluid bolus. She was then referred to the [facility] service for further evaluation and treatment. Syncope and collapse- Patient had a loss of consciousness for an unknown length of time. When she awoke, she did not have loss of bladder or bowel or bladder control, she was able to slowly pull her self up to a sitting position, and called EMS. She had a brief episode of feeling woozy before she lost consciousness. She is not aware of any palpitations or breathing issues prior to the episode. CT scan of head without contrast shows a left frontal subcu hematoma. CT scanning it also showed chronic left basal ganglia and left temporal lobe infarcts. Chest x-ray was negative X-ray right shoulder was negative Neurologic examination is normal. Order MRI brain without contrast. The patient will be admitted to telemetry for serial cardiac enzymes, serial EKG, cardiac rhythm monitoring and a 2-D echocardiogram with Dopplers. Unlikely a seizure event, however, could consider EEG if indicated later in the day. Appears mildly dehydrated, will place on LR at 80 mL/h x 1 L. Left wrist injury- X-ray with no acute fracture If persistent or progressive symptoms, do further imaging and/or consult ortho CAD/hypertension- Patient underwent cardiac catheterization on 03/19/2024 with recommendation for medical management. She is not aware of any palpitations prior to the event. Potassium 3.9, magnesium 2.0 Hyperlipidemia- Continue atorvastatin 10 mg every morning Check a fasting lipid panel GERD- Continue pantoprazole 40 mg twice daily Vestibular migraine- Continue rizatriptan 10 mg daily- Anxiety- Continue sertraline Continue buspirone 5 mg twice daily as needed History of mixed stress and urge urinary incontinence- Normal urinalysis Admission HPI Per Admitting Provider The patient is a 74-year-old female with a past medical history including coronary artery disease, mitral regurgitation, diverticular disease, SNHL bilaterally, Schatzki's ring, history of CVA, vestibular migraine, LBBB, mild cognitive impairment, hyperlipidemia, Morse's esophagitis, and recurrent cystitis. She reports that she was in the room at home, walking, and the next thing she remembers she was waking up on the floor after an unknown interval time. She did have some head trauma with a left frontotemporal hematoma, and swollen left wrist. CT scan of head showed a subcu hematoma left frontal area, and chronic infarcts in the left basal ganglia and left temporal lobe. Chest x- ray was negative. Left wrist showed no acute fracture but did show soft tissue swelling. Right shoulder x-ray was negative. From the ED patient received normal saline 1 L fluid bolus. She was then referred to the [facility] service for further evaluation and treatment. Discharge Exam VITALS: Reviewed. WEIGHT/BMI reviewed. GEN: Healthy appearing, well-developed, NAD. PSYCH: Good Judgment. AOx3. Normal memory, mood, and affect. HEENT -Head: NC; +bruising around L eye -Eyes: PERRL, EOMI. No discharge or redness; -Ears: External ears are normal. Normal TMs. -Nose: Normal nares. -Mouth and throat: MMM. Normal gums, mucosa, palate,. Good dentition. NECK: Supple, with no masses. CV: RRR, no m/r/g. LUNGS: CTAB, no w/r/c. ABD: Soft, NT/ND, NBS, no masses or organomegaly. : N/A SKIN: Warm, well perfused. No skin rashes or abnormal lesions. MSK: No deformities, Normal gait. EXT: No clubbing, cyanosis, or edema. NEURO: Ambulating with no limitations. Normal muscle strength and tone. No focal deficits. Discharge Plan Discharge Items Patient Disposition: Home - Self-Care Reason For Visit: Syncope, Head TRAUMA Discharge Diagnosis: Syncope with Loss of Consciousness Condition on Discharge: Fair Activity: Resume your previous activity Non-emergency contact: Primary Care Provider Call non-emergency contact if: you have any medication questions Follow-up/Referrals: Miriam Dennis, [Primary Care Provider] - Diet: Heart Healthy Addtl Attending Provider Instructions: Follow-up with primary care physician Consider a monitoring and evaluation advisor (Holter) as an outpatient; especially if you have any recurrent symptoms Pending Studies at Discharge: No Stand-Alone Forms: My [employer], Smoking Cessation Medications and DC Order Prescriptions: Continued atorvastatin 10 mg tablet 10 mg PO QAM Qty: 90 3RF pantoprazole 40 mg tablet,delayed release (DR/EC) 40 mg PO BID Qty: 180 3RF Rx Instructions: TAKE 1 TABLET BY MOUTH TWICE A DAY buspirone 5 mg tablet 5 mg PO BID PRN (Reason: Anxiety) rizatriptan 10 mg tablet 10 mg PO UD MDD 20mg PRN (Reason: migraine headache) Rx Instructions: 10 mg orally prn migraine, repeat after two hours prn multivitamin Tablet 1 tab PO DAILY sertraline 25 mg tablet 25 mg PO QAM Discharge Orders: Discharge Order (Routine); Ordered 01/15/25 Ordered By: Shay Camacho/Other Patient Handouts: Syncope Tx Heart Admission Data Admit Date/Time: 01/14/25 03:26 Attending Provider: Shay Melgoza Admit Provider: Daren Jolley Primary Care Provider: Miriam Dennis Other Providers: Daren Jolley Hospital Stay Data Consultations 01/14/25 02:04 ED Decision to Admit Stat Diagnostic Imagining Performed 01/13/25 23:57 CT head/brain wo con Stat 01/14/25 03:05 MRI Brain [MR brain wo con] Stat Pending Results Patient Have Any Pending Studies at Discharge: No Discharge Instructions Given to Patient (Per Discharging Provider) Follow-up with primary care physician Consider a monitoring and evaluation advisor (Holter) as an outpatient; especially if you have any recurrent symptoms Home Health Attestation I certify that this patient is under my care and that I, or a physicians addictions counselor assistant working with me, had a face to-face encounter that meets the home health [id number] encounter requirements with this patient. The encounter with the patient was in whole, or in part, for the following medical condition, which is the primary reason for home health care (list medical condition): I certify that, based on my findings, the following services are medically necessary home health services: My clinical findings support the need for the above services because: Further, I certify that my clinical findings support that this patient is homebound (i.e. absences from home require considerable and taxing effort and are for medical reasons or roman catholic services or infrequently or of short duration when for other reasons) because: Certification for Home Health Services: Based on the above findings, I certify that this patient is confined to the home and needs intermittent fci care, physical therapy and/or speech therapy or continues to need occupational therapy. The patient is under my care, and I have initiated the establishment of the plan of care. This patient will be followed by a physician who will periodically review the plan of care. Total Time Total Time Spent Total Time Spent (In Minutes): 35 Coding Level of Care Code 50246 INP/OBS DISCH >30 MIN Diagnoses Syncope and collapse R55 Coronary artery disease I25.10 Head injury S09.90XA Left wrist injury S69.92XA
--- NOTE | 2025-01-15 13:51 | Discharge Summary ---
Discharge Summary Date of Service January 15, 2025 Principal Dx & Hospital Course #1 = Principal Diagnosis (1) Syncope and collapse: (2) Coronary artery disease: (3) Head injury: (4) Left wrist injury: Plan 01/15 - patient came in with syncope and LOC - had a head CT and Brain MRI - negative for acute process; chronic ischemic changes noted as well as L scalp contusion - echo was done and no significant valvular heart disease or wall motion abnormality, normal LVEF - EKG - NSR w LBBB - she states she feels better and wants to go home - PT eval done - recommended acute rehab stay The patient is a 74-year-old female with a past medical history including coronary artery disease, mitral regurgitation, diverticular disease, SNHL bilaterally, Schatzki's ring, history of CVA, vestibular migraine, LBBB, mild cognitive impairment, hyperlipidemia, Morse's esophagitis, and recurrent cystitis. She reports that she was in the room at home, walking, and the next thing she remembers she was waking up on the floor after an unknown interval time. She did have some head trauma with a left frontotemporal hematoma, and swollen left wrist. CT scan of head showed a subcu hematoma left frontal area, and chronic infarcts in the left basal ganglia and left temporal lobe. Chest x- ray was negative. Left wrist showed no acute fracture but did show soft tissue swelling. Right shoulder x-ray was negative. From the ED patient received normal saline 1 L fluid bolus. She was then referred to the [facility] service for further evaluation and treatment. Syncope and collapse- Patient had a loss of consciousness for an unknown length of time. When she awoke, she did not have loss of bladder or bowel or bladder control, she was able to slowly pull her self up to a sitting position, and called EMS. She had a brief episode of feeling woozy before she lost consciousness. She is not aware of any palpitations or breathing issues prior to the episode. CT scan of head without contrast shows a left frontal subcu hematoma. CT scanning it also showed chronic left basal ganglia and left temporal lobe infarcts. Chest x-ray was negative X-ray right shoulder was negative Neurologic examination is normal. Order MRI brain without contrast. The patient will be admitted to telemetry for serial cardiac enzymes, serial EKG, cardiac rhythm monitoring and a 2-D echocardiogram with Dopplers. Unlikely a seizure event, however, could consider EEG if indicated later in the day. Appears mildly dehydrated, will place on LR at 80 mL/h x 1 L. Left wrist injury- X-ray with no acute fracture If persistent or progressive symptoms, do further imaging and/or consult ortho CAD/hypertension- Patient underwent cardiac catheterization on 03/19/2024 with recommendation for medical management. She is not aware of any palpitations prior to the event. Potassium 3.9, magnesium 2.0 Hyperlipidemia- Continue atorvastatin 10 mg every morning Check a fasting lipid panel GERD- Continue pantoprazole 40 mg twice daily Vestibular migraine- Continue rizatriptan 10 mg daily- Anxiety- Continue sertraline Continue buspirone 5 mg twice daily as needed History of mixed stress and urge urinary incontinence- Normal urinalysis Admission HPI Per Admitting Provider The patient is a 74-year-old female with a past medical history including coronary artery disease, mitral regurgitation, diverticular disease, SNHL bilaterally, Schatzki's ring, history of CVA, vestibular migraine, LBBB, mild cognitive impairment, hyperlipidemia, Morse's esophagitis, and recurrent cystitis. She reports that she was in the room at home, walking, and the next thing she remembers she was waking up on the floor after an unknown interval time. She did have some head trauma with a left frontotemporal hematoma, and swollen left wrist. CT scan of head showed a subcu hematoma left frontal area, and chronic infarcts in the left basal ganglia and left temporal lobe. Chest x- ray was negative. Left wrist showed no acute fracture but did show soft tissue swelling. Right shoulder x-ray was negative. From the ED patient received normal saline 1 L fluid bolus. She was then referred to the [facility] service for further evaluation and treatment. Discharge Exam VITALS: Reviewed. WEIGHT/BMI reviewed. GEN: Healthy appearing, well-developed, NAD. PSYCH: Good Judgment. AOx3. Normal memory, mood, and affect. HEENT -Head: NC; +bruising around L eye -Eyes: PERRL, EOMI. No discharge or redness; -Ears: External ears are normal. Normal TMs. -Nose: Normal nares. -Mouth and throat: MMM. Normal gums, mucosa, palate,. Good dentition. NECK: Supple, with no masses. CV: RRR, no m/r/g. LUNGS: CTAB, no w/r/c. ABD: Soft, NT/ND, NBS, no masses or organomegaly. : N/A SKIN: Warm, well perfused. No skin rashes or abnormal lesions. MSK: No deformities, Normal gait. EXT: No clubbing, cyanosis, or edema. NEURO: Ambulating with no limitations. Normal muscle strength and tone. No focal deficits. Discharge Plan Discharge Items Patient Disposition: Transfer Inpatient Rehab Fac Reason For Visit: Syncope, Head TRAUMA Discharge Diagnosis: Syncope with Loss of Consciousness Condition on Discharge: Fair Activity: Resume your previous activity Non-emergency contact: Primary Care Provider Call non-emergency contact if: you have any medication questions Follow-up/Referrals: Miriam Dennis DO [Primary Care Provider] - 01/20/25 9:20 am (01/20/25 at 9:20 with Miriam Dennis) Diet: Heart Healthy Addtl Attending Provider Instructions: Follow-up with primary care physician Consider a nuclear monitoring technician (Holter) as an outpatient; especially if you have any recurrent symptoms Pending Studies at Discharge: No Stand-Alone Forms: My [employer] [facility] [employer] Smoking Cessation Skilled Items Patient informed of condition?: Yes DNR: No Discharge Level of Care: Acute rehab Communicable Disease: No Discharge Prognosis: Improving Lines: None Urinary Catheter: No Medications and DC Order Prescriptions: Continued atorvastatin 10 mg tablet 10 mg PO QAM Qty: 90 3RF pantoprazole 40 mg tablet,delayed release (DR/EC) 40 mg PO BID Qty: 180 3RF Rx Instructions: TAKE 1 TABLET BY MOUTH TWICE A DAY buspirone 5 mg tablet 5 mg PO BID PRN (Reason: Anxiety) rizatriptan 10 mg tablet 10 mg PO UD MDD 20mg PRN (Reason: migraine headache) Rx Instructions: 10 mg orally prn migraine, repeat after two hours prn multivitamin Tablet 1 tab PO DAILY sertraline 25 mg tablet 25 mg PO QAM Discharge Orders: Discharge Order (Routine); Ordered 01/15/25 Ordered By: Shay Camacho/Other Patient Handouts: Syncope Tx Heart Admission Data Admit Date/Time: 01/14/25 03:26 Attending Provider: Shay Melgoza Admit Provider: Daren Jolley Primary Care Provider: Miriam Dennis Other Providers: Daren Jolley Hospital Stay Data Consultations 01/14/25 02:04 ED Decision to Admit Stat Diagnostic Imagining Performed 01/13/25 23:57 CT head/brain wo con Stat 01/14/25 03:05 MRI Brain [MR brain wo con] Stat Pending Results Patient Have Any Pending Studies at Discharge: No Discharge Instructions Given to Patient (Per Discharging Provider) Follow-up with primary care physician Consider a nuclear monitoring technician (Holter) as an outpatient; especially if you have any recurrent symptoms Home Health Attestation I certify that this patient is under my care and that I, or a physicians certified surgical first assistant working with me, had a face to-face encounter that meets the home health [id number] encounter requirements with this patient. The encounter with the patient was in whole, or in part, for the following medical condition, which is the primary reason for home health care (list medical condition): I certify that, based on my findings, the following services are medically necessary home health services: My clinical findings support the need for the above services because: Further, I certify that my clinical findings support that this patient is homebound (i.e. absences from home require considerable and taxing effort and are for medical reasons or voodoo services or infrequently or of short duration when for other reasons) because: Certification for Home Health Services: Based on the above findings, I certify that this patient is confined to the home and needs intermittent chcf care, physical therapy and/or speech therapy or continues to need occupational therapy. The patient is under my care, and I have initiated the establishment of the plan of care. This patient will be followed by a physician who will periodically review the plan of care. Total Time Total Time Spent Total Time Spent (In Minutes): 40 Coding Level of Care Code 18907 INP/OBS DISCH >30 MIN Diagnoses Syncope and collapse R55 Coronary artery disease I25.10 Head injury S09.90XA Left wrist injury S69.92XA
--- NOTE | 2025-01-16 05:59 | Electrocardiogram Report ---
Test Reason : Blood Pressure : */* mmHG Vent. Rate : 75 BPM Atrial Rate : 75 BPM P-R Int : 182 ms QRS Dur : 128 ms QT Int : 428 ms P-R-T Axes : 35 35 98 degrees QTcB Int : 477 ms Normal sinus rhythm Left bundle branch block Abnormal ECG When compared with ECG of 14-Jun-2024 09:22, T wave inversion now evident in Lateral leads Confirmed by Damian Schreiber ([id number]) on 01/16/2025 5:59:15 AM Referred By: REFERRED SELF Confirmed By: Damian Schreiber
--- NOTE | 2025-01-16 05:59 | Electrocardiogram Report ---
Test Reason : Blood Pressure : */* mmHG Vent. Rate : 63 BPM Atrial Rate : 63 BPM P-R Int : 202 ms QRS Dur : 134 ms QT Int : 482 ms P-R-T Axes : 43 39 199 degrees QTcB Int : 493 ms Normal sinus rhythm Left bundle branch block Abnormal ECG When compared with ECG of 13-Jan-2025 23:52, No significant change Confirmed by Damian Schreiber ([id number]) on 01/16/2025 5:59:34 AM Referred By: REFERRED SELF Confirmed By: Damian Schreiber
[2025-01-16 07:14] LABS: Hematocrit (blood only) 38.5 % (37.0-47.0); Hemoglobin 13.6 g/dL (12.0-16.0); Immature Granulocytes # (auto) 0.02 K/uL (0.01-0.20); Immature Granulocytes % (auto) 0.3 %; Mean Corpuscular Hemoglobin 31.7 pg (25.0-34.0); Mean Corpuscular Volume 89.7 fL (80.0-100.0); Platelet Count 254 K/uL (130-400); RDW Standard Deviation 40.5 fL (36.4-46.3); Red Blood Count 4.29 M/uL (4.20-5.40); White Blood Count 7.46 K/ul (4.8-10.8)
[2025-01-16 07:44] VITALS: RESP 23; TEMP 97.5; O2SAT 94
[2025-01-16 07:44] LABS: Alanine Aminotransferase 16.0 U/L (7-52); Albumin Globulin Ratio 1.8 (0.9-2); Albumin Level 4.4 gm/dl (3.4-5.0); Alkaline Phosphatase 69.0 U/L (34-104); Anion Gap 6.0 (3-11); Bilirubin,Total 0.5 mg/dl (0.2-1.0); Blood Urea Nitrogen 21.0 mg/dl (6-23); Calcium 9.5 mg/dl (8.6-10.3); Carbon Dioxide 28.0 mmol/L (21-32); Chloride 105.0 mmol/L (98-107); Creatinine Clr Calc Pharmacy 58.4 ml/min; Globulin 2.4 gm/dl (2.5-4.0); Glucose 97.0 mg/dl (70-99(Fasting)); Magnesium 2.1 mg/dl (1.7-2.4); Potassium 4.0 mmol/L (3.5-5.1); Sodium 139.0 mmol/L (136-145); Total Protein 6.8 gm/dl (6.0-8.3)
[2025-01-16 12:09] VITALS: BP 106/68; PULSE 75
--- NOTE | 2025-01-16 12:41 | Discharge Summary ---
Discharge Summary Date of Service January 16, 2025 Principal Dx & Hospital Course #1 = Principal Diagnosis (1) Syncope and collapse: (2) Coronary artery disease: (3) Head injury: (4) Left wrist injury: Plan 01/15 - patient came in with syncope and LOC - had a head CT and Brain MRI - negative for acute process; chronic ischemic changes noted as well as L scalp contusion - echo was done and no significant valvular heart disease or wall motion abnormality, normal LVEF - EKG - NSR w LBBB - she states she feels better and wants to go home - PT sherman done - recommended acute rehab stay Addendum to 01/15/2025 discharge summary: 01/16/2025 (actual discharge date): -vasovagal syncope has NOT recurred while patient remained in [facility] from admission date 01/14/2025 through discharge date 01/16/2025. -vasovagal syncope preventive measures include increasing fluid and salt intake to increase blood volume, but patient insists, "I drink lots and lots of water e very day to stay hydrated, so I don't think that I am dehydrated." -vasovagal syncope treatment measures include grabbing onto something stationary AMBER to mitigate/prevent patient falling onto the ground and suffering traumatic injury to herself, but patient insists, "I already reach for anything stationary as soon as I feel like I am gonna pass out, so I don't hit my head on the ground." -prior history of CVA (cf., "Hypodense areas seen at the left basal ganglia and left temporal lobe suggestive of chronic infarcts" (as reported on 01/13/2025, 11:57pm CT brain without IV contrast). Patient reports that she takes NO aspirin and/or plavix as secondary prophylaxis against CVD/CVA because "I have bad GERD and Morse's esophagus and aspirin upsets my stomach and makes the GERD worse, so all I take is atorvastatin 10mg at home to prevent stroke in the future." The patient is a 74-year-old female with a past medical history including coronary artery disease, mitral regurgitation, diverticular disease, SNHL bilaterally, Schatzki's ring, history of CVA, vestibular migraine, LBBB, mild cognitive impairment, hyperlipidemia, Morse's esophagitis, and recurrent cystitis. She reports that she was in the room at home, walking, and the next thing she remembers she was waking up on the floor after an unknown interval time. She did have some head trauma with a left frontotemporal hematoma, and swollen left wrist. CT scan of head showed a subcu hematoma left frontal area, and chronic infarcts in the left basal ganglia and left temporal lobe. Chest x- ray was negative. Left wrist showed no acute fracture but did show soft tissue swelling. Right shoulder x-ray was negative. From the ED patient received normal saline 1 L fluid bolus. She was then referred to [facility] for further evaluation and treatment. Syncope and collapse- Patient had a loss of consciousness for an unknown length of time. When she awoke, she did not have loss of bladder or bowel or bladder control, she was able to slowly pull her self up to a sitting position, and called EMS. She had a brief episode of feeling woozy before she lost consciousness. She is not aware of any palpitations or breathing issues prior to the episode. CT scan of head without contrast shows a left frontal subcu hematoma. CT scanning it also showed chronic left basal ganglia and left temporal lobe infarcts. Chest x-ray was negative X-ray right shoulder was negative Neurologic examination is normal. Order MRI brain without contrast. The patient will be admitted to telemetry for serial cardiac enzymes, serial EKG, cardiac rhythm monitoring and a 2-D echocardiogram with Dopplers. Unlikely a seizure event, however, could consider EEG if indicated later in the day. Appears mildly dehydrated, will place on LR at 80 mL/h x 1 L. Left wrist injury- X-ray with no acute fracture If persistent or progressive symptoms, do further imaging and/or consult ortho CAD/hypertension- Patient underwent cardiac catheterization on 03/19/2024 with recommendation for medical management. She is not aware of any palpitations prior to the event. Potassium 3.9, magnesium 2.0 Hyperlipidemia- Continue atorvastatin 10 mg every morning Check a fasting lipid panel GERD- Continue pantoprazole 40 mg twice daily Vestibular migraine- Continue rizatriptan 10 mg daily- Anxiety- Continue sertraline Continue buspirone 5 mg twice daily as needed History of mixed stress and urge urinary incontinence- Normal urinalysis Admission HPI Per Admitting Provider The patient is a 74-year-old female with a past medical history including coronary artery disease, mitral regurgitation, diverticular disease, SNHL bilaterally, Schatzki's ring, history of CVA, vestibular migraine, LBBB, mild cognitive impairment, hyperlipidemia, Morse's esophagitis, and recurrent cystitis. She reports that she was in the room at home, walking, and the next thing she remembers she was waking up on the floor after an unknown interval time. She did have some head trauma with a left frontotemporal hematoma, and swollen left wrist. CT scan of head showed a subcu hematoma left frontal area, and chronic infarcts in the left basal ganglia and left temporal lobe. Chest x- ray was negative. Left wrist showed no acute fracture but did show soft tissue swelling. Right shoulder x-ray was negative. From the ED patient received normal saline 1 L fluid bolus. She was then referred to the [facility] service for further evaluation and treatment. Discharge Exam Constitutional General: comfortable, coherent, cooperative. Wide awake and alert. Not confused, lethargic, or obtunded. Patient speaks in complete, fluent, and articulate sentences without pause, interruption, cough, or wheeze. HEENT: Normocephalic, atraumatic. PERRL. EOMI. No nystagmus, gaze paresis, anisocoria, miosis, mydriasis, hyphema, scleral injection, conjunctivitis, or pterygium. No otorrhea. No rhinorrhea. No pharyngeal erythema, edema, ulceration, or discharge. Neck: Supple, no stridor, bruit, or goiter. Jugular venous pressure is estimated at 3 cm above the sternal angle of Gil, which is 5 cm above the level of the right atrium. Lymph: No pre-auricular, post-auricular, supraclavicular, infraclavicular, axillary, epitrochlear, or inguinal adenopathy. Chest: Symmetric rise and fall with respirations. Non-tender to palpation. Heart: RRR, S1 and S2 noted. No S3 or S4 summation gallop noted. Grade II/ early systolic murmur @ LLSB without radiation to the carotids, axilla, or back, and which remains invariant in regards to the respiratory cycle. Lungs: Clear to auscultation and percussion. No audible expiratory wheeze, egophony, pectoriloquy, increase in tactile fremitus, or flatness/dullness to percussion at the bases. Extremities: No clubbing, cyanosis, or edema. 2+ pedal pulses bilaterally. Skin: No decubitus ulcer, exanthem, or enanthem. Neurology: Alert and oriented in regards to person, place, time, and situation. DTR+. 5/5 motor strength in all 4 extremities, both proximally and distally. No myoclonus, tremors, or tics. Urology: No sebastian catheter. No urethral discharge. Psych: Smiles appropriately. No flat affect. Discharge Plan Discharge Items Patient Disposition: Home - Self-Care Reason For Visit: Syncope, Head TRAUMA Discharge Diagnosis: Syncope with Loss of Consciousness Condition on Discharge: Fair Activity: Resume your previous activity Non-emergency contact: Primary Care Provider Call non-emergency contact if: you have any medication questions Follow-up/Referrals: Miriam Dennis DO [Primary Care Provider] - 01/20/25 9:20 am (01/20/25 at 9:20 with Miriam Dennis) Diet: Heart Healthy Addtl Attending Provider Instructions: Follow-up with primary care physician Consider a quality assurance monitor (Holter) as an outpatient; especially if you have any recurrent symptoms Pending Studies at Discharge: No Stand-Alone Forms: My [employer], Smoking Cessation Medications and DC Order Prescriptions: Continued atorvastatin 10 mg tablet 10 mg PO QAM Qty: 90 3RF pantoprazole 40 mg tablet,delayed release (DR/EC) 40 mg PO BID Qty: 180 3RF Rx Instructions: TAKE 1 TABLET BY MOUTH TWICE A DAY buspirone 5 mg tablet 5 mg PO BID PRN (Reason: Anxiety) rizatriptan 10 mg tablet 10 mg PO UD MDD 20mg PRN (Reason: migraine headache) Rx Instructions: 10 mg orally prn migraine, repeat after two hours prn multivitamin Tablet 1 tab PO DAILY sertraline 25 mg tablet 25 mg PO QAM Discharge Orders: Discharge Order (Routine); Ordered 01/15/25 Ordered By: Shay Camacho/Other Patient Handouts: Syncope Tx Heart Admission Data Admit Date/Time: 01/14/25 03:26 Attending Provider: Phillip Caban Admit Provider: Daren Jolley Primary Care Provider: Miriam Dennis Other Providers: Daren Jolley Other Interventions: Discharge Summary Assessment (RN) Last Done: 01/16/25 12:08 Hospital Stay Data Consultations 01/14/25 02:04 ED Decision to Admit Stat Diagnostic Imagining Performed 01/13/25 23:57 CT head/brain wo con Stat 01/14/25 03:05 MRI Brain [MR brain wo con] Stat Pending Results Patient Have Any Pending Studies at Discharge: No Discharge Instructions Given to Patient (Per Discharging Provider) Follow-up with primary care physician Consider a quality assurance monitor (Holter) as an outpatient; especially if you have any recurrent symptoms Total Time Total Time Spent Total Time Spent (In Minutes): 35 minutes. Of this time period, 19 minutes were spent in corodinating patient's discharge. Coding Level of Care Code 79494 INP/OBS DISCH >30 MIN Diagnoses Syncope and collapse R55 Coronary artery disease I25.10 Head injury S09.90XA Left wrist injury S69.92XA
--- NOTE | 2025-01-17 05:48 | Electrocardiogram Report ---
Test Reason : Blood Pressure : */* mmHG Vent. Rate : 71 BPM Atrial Rate : 71 BPM P-R Int : 180 ms QRS Dur : 120 ms QT Int : 474 ms P-R-T Axes : 14 22 182 degrees QTcB Int : 515 ms Normal sinus rhythm Left bundle branch block Abnormal ECG When compared with ECG of 15-Jan-2025 06:12, No significant change Confirmed by Damian Schreiber ([id number]) on 01/17/2025 5:47:49 AM Referred By: REFERRED SELF Confirmed By: Damian Schreiber
== END 2025-01-16 12:34 | disposition home or self-care (01) ==
LOC: ED 23:47 → EDINP 23:47 → SUATTDRO 01-14 03:26 → 2S 01-14 04:07